=== PATIENT | female | born 1990 | race Caucasian/White ===

== ENCOUNTER → 2018-01-16 | Outpatient (CLI) | payer OTHER ==
[2018-01-16 08:57] LABS: Basophils # (A) 0.1 k/uL (0-0.2); Basophils % (A) 1 %; Eosinophils # (A) 0.2 k/uL (0-0.7); Eosinophils % (A) 4 %; HCT 39.2 % (34.0-46.0); HGB 13.5 gm/dL (11.4-16.0); Lymphocytes # (A) 1.4 k/uL (1.0-4.8); Lymphocytes % (A) 25 %; MCH 30.2 pg (25.0-35.0); MCHC 34.5 g/dL (31.0-37.0); MCV 87.5 fL (80.0-100.0); Mean Platelet Volume 8.8; Monocytes # (A) 0.3 k/uL (0-1.0); Monocytes % (A) 6 %; Neutrophils # (A) 3.4 k/uL (1.3-7.7); Neutrophils % (A) 62 %; Platelet Count 182 k/uL (150-450); RBC 4.48 m/uL (3.80-5.40); RDW 12.6 % (11.5-15.5); WBC 5.5 k/uL (3.8-10.6)
[2018-01-16 09:15] LABS: C Reactive Protein 6.9 mg/L (<10.0)
== END | disposition home or self-care (01) ==
LOC: LABWHC1 08:32
PROVIDERS: ATTEND Family Medicine
DX: Z00.00 Encounter for general adult medical examination without abnormal findings (principal); M25.561 Pain in right knee; M25.562 Pain in left knee
CPT/HCPCS: 36415; 80061; 82947; 85025; 86140; 86431

== ENCOUNTER 2018-07-01 03:05 | Emergency (ER) | payer OTHER ==
[2018-07-01 03:20] VITALS: TEMP 99.2
[2018-07-01] MEDS ORDERED: KETOROLAC 30 MG/ML 1 ML VIAL IVP STA (03:33)
--- NOTE | 2018-07-01 03:41 | ED ---
Abdominal Pain HPI - General Chief Complaint: Abdominal Pain Stated Complaint: Flank pain, unable to urinate,vomiting Time Seen by Provider: 07/01/18 03:32 Source: patient Mode of arrival: ambulatory - History of Present Illness Initial Comments: Karine is a 27-year-old female who works in the radiology department of our hospital, she has a history of kidney stones and comes to the ER today from her department for evaluation of flank pain with associated nausea and vomiting. Patient reports that approximately 90 minutes before checking her self to the ER she began to have stabbing left-sided flank pain with associated nausea and vomiting. Patient reports pain is 10 out of 10 and she was kneeling on the bathroom floor vomiting unable to get herself up. Patient was attempting to digitally coming to the ER because she currently doesn't have medical insurance and was concerned about the cost however the pain was unbearable and she was unable to work. She reports her last kidney stone was approximately 10 years ago. She recalls it being painful but doesn't recall pain this severe. Patient reports her last menstrual period was early in the month and there is no possibility of . She reports that prior to the sudden onset of this pain and nausea and vomiting she was in her usual state of health with no complaints. Last bowel movement occurred immediately after the onset of this pain, it was soft but not diarrhea. - Related Data Home Medications Medication Instructions Recorded Confirmed Norgestimate-Ethinyl Estradiol 1 each PO HS 07/25/17 07/01/18 [Tri-Sprintec Tablet] Ranitidine HCl [Zantac] 150 mg PO BID 07/25/17 07/01/18 Previous Rx's Medication Instructions Recorded Acetaminophen with Codeine 1 tab PO Q4H PRN 3 Days #10 tab 07/01/18 [Tylenol w/codeine #3] traMADol HCL [Ultram] 50 mg PO Q6HR PRN 3 Days #10 tab 07/01/18 Allergies Allergy/AdvReac Type Severity Reaction Status Date / Time Penicillins AdvReac Rash/Hives Verified 07/01/18 03:21 Sulfa (Sulfonamide AdvReac Rash/Hives Verified 07/01/18 03:21 Antibiotics) sulfamethoxazole AdvReac Rash/Hives Verified 07/01/18 03:21 [From Bactrim] trimethoprim [From Bactrim] AdvReac Rash/Hives Verified 07/01/18 03:21 Review of Systems ROS Statement: Those systems with pertinent positive or pertinent negative responses have been documented in the HPI. ROS Other: All systems not noted in ROS Statement are negative. Past Medical History Additional Past Medical History / Comment(s): Kidney stones History of Any Multi-Drug Resistant Organisms: None Reported Additional Past Surgical History / Comment(s): Lithotripsy Past Psychological History: No Psychological Hx Reported Smoking Status: Never smoker Past Alcohol Use History: None Reported Past Drug Use History: None Reported General Exam - General Exam Comments Initial Comments: Physical Exam GENERAL: Patient is well-developed and well-nourished. Patient is nontoxic and well-hydrated and is in moderate distress secondary to pain HENT: Normocephalic, Atraumatic. EYES: PERRL, EOMI PULMONARY: Unlabored respirations. No audible rales rhonchi or wheezing was noted. CARDIOVASCULAR: Tachycardic upon arrival, tachycardia resolved ABDOMEN: Soft and nontender with normal bowel sounds. Left-sided flank pain to palpation SKIN: Skin is clear with no lesions or rashes and otherwise unremarkable. : Deferred NEUROLOGIC: Patient is alert and oriented x3. Moving all extremities spontaneously MUSCULOSKELETAL: Normal extremities with adequate strength and full range of motion. No lower extremity swelling or edema. No calf tenderness. PSYCHIATRIC: Normal psychiatric evaluation. Limitations: no limitations Course Vital Signs 07/01/18 07/01/18 03:17 05:04 Temperature 99.2 F Pulse Rate 128 H 86 Respiratory 22 18 Rate Blood Pressure 113/81 110/64 O2 Sat by Pulse 99 100 Oximetry Medical Decision Making - Medical Decision Making Upon initial evaluation the patient is tachycardic, shaking in pain, crying absent imaging were ordered Toradol was ordered for pain Bedside ultrasound revealed no obvious hydronephrosis, ultrasound of the bladder did reveal a hyperdense in the left UVJ consistent with a stone, measuring 3-5 mm Patient was reevaluated after Toradol and IV fluids. Her pain is completely resolved she's resting comfortably Urinalysis reveals no evidence of urinary tract infection there is hematuria which is likely secondary to stone Patient was observed for over an hour after Toradol, she remained pain-free stated she felt well enough to return to work. The patient states only pain medication she has had in the past that works for her kidney stones was altered. A prescription was given. Return parameters were discussed all questions pertaining to care were answered best my ability patient was discharged home in stable condition. - Lab Data Result diagrams: 07/01/18 03:39 07/01/18 03:45 Lab Results 07/01/18 07/01/18 07/01/18 Range/Units 03:39 03:45 04:32 WBC 14.5 H (3.8-10.6) k/uL RBC 4.43 (3.80-5.40) m/uL Hgb 13.5 (11.4-16.0) gm/dL Hct 38.6 (34.0-46.0) % MCV 87.1 (80.0-100.0) fL MCH 30.5 (25.0-35.0) pg MCHC 35.0 (31.0-37.0) g/dL RDW 12.3 (11.5-15.5) % Plt Count 172 (150-450) k/uL Neutrophils % 86 % Lymphocytes % 7 % Monocytes % 4 % Eosinophils % 1 % Basophils % 0 % Neutrophils # 12.5 H (1.3-7.7) k/uL Lymphocytes # 1.1 (1.0-4.8) k/uL Monocytes # 0.7 (0-1.0) k/uL Eosinophils # 0.2 (0-0.7) k/uL Basophils # 0.1 (0-0.2) k/uL Sodium 138 (137-145) mmol/L Potassium 4.1 (3.5-5.1) mmol/L Chloride 104 (98-107) mmol/L Carbon Dioxide 23 (22-30) mmol/L Anion Gap 11 mmol/L BUN 9 (7-17) mg/dL Creatinine 0.80 (0.52-1.04) mg/dL Est GFR (CKD-EPI)AfAm >90 (>60 ml/min/1.73 sqM) Est GFR (CKD-EPI)NonAf >90 (>60 ml/min/1.73 sqM) Glucose 123 H (74-99) mg/dL Calcium 9.4 (8.4-10.2) mg/dL Total Bilirubin 0.4 (0.2-1.3) mg/dL AST 20 (14-36) U/L ALT 20 (9-52) U/L Alkaline Phosphatase 53 (38-126) U/L Total Protein 7.4 (6.3-8.2) g/dL Albumin 4.2 (3.5-5.0) g/dL Urine Color Urine Appearance (Clear) Urine pH (5.0-8.0) Ur Specific Lowgap (1.001-1.035) Urine Protein (Negative) Urine Glucose (UA) (Negative) Urine Ketones (Negative) Urine Blood (Negative) Urine Nitrite (Negative) Urine Bilirubin (Negative) Urine Urobilinogen (<2.0) mg/dL Ur Leukocyte Esterase (Negative) Urine RBC (0-5) /hpf Urine WBC (0-5) /hpf Ur Squamous Epith Cells (0-4) /hpf Urine Bacteria (None) /hpf Hyaline Casts (0-2) /lpf Urine Mucus (None) /hpf Urine HCG, Qual Not Detected (Not Detectd) 07/01/18 Range/Units 04:32 WBC (3.8-10.6) k/uL RBC (3.80-5.40) m/uL Hgb (11.4-16.0) gm/dL Hct (34.0-46.0) % MCV (80.0-100.0) fL MCH (25.0-35.0) pg MCHC (31.0-37.0) g/dL RDW (11.5-15.5) % Plt Count (150-450) k/uL Neutrophils % % Lymphocytes % % Monocytes % % Eosinophils % % Basophils % % Neutrophils # (1.3-7.7) k/uL Lymphocytes # (1.0-4.8) k/uL Monocytes # (0-1.0) k/uL Eosinophils # (0-0.7) k/uL Basophils # (0-0.2) k/uL Sodium (137-145) mmol/L Potassium (3.5-5.1) mmol/L Chloride (98-107) mmol/L Carbon Dioxide (22-30) mmol/L Anion Gap mmol/L BUN (7-17) mg/dL Creatinine (0.52-1.04) mg/dL Est GFR (CKD-EPI)AfAm (>60 ml/min/1.73 sqM) Est GFR (CKD-EPI)NonAf (>60 ml/min/1.73 sqM) Glucose (74-99) mg/dL Calcium (8.4-10.2) mg/dL Total Bilirubin (0.2-1.3) mg/dL AST (14-36) U/L ALT (9-52) U/L Alkaline Phosphatase (38-126) U/L Total Protein (6.3-8.2) g/dL Albumin (3.5-5.0) g/dL Urine Color Yellow Urine Appearance Cloudy H (Clear) Urine pH 5.5 (5.0-8.0) Ur Specific Lowgap 1.010 (1.001-1.035) Urine Protein 1+ H (Negative) Urine Glucose (UA) Negative (Negative) Urine Ketones 1+ H (Negative) Urine Blood Small H (Negative) Urine Nitrite Negative (Negative) Urine Bilirubin Negative (Negative) Urine Urobilinogen <2.0 (<2.0) mg/dL Ur Leukocyte Esterase Negative (Negative) Urine RBC 17 H (0-5) /hpf Urine WBC 10 H (0-5) /hpf Ur Squamous Epith Cells 10 H (0-4) /hpf Urine Bacteria Few H (None) /hpf Hyaline Casts 3 H (0-2) /lpf Urine Mucus Many H (None) /hpf Urine HCG, Qual (Not Detectd) Disposition Clinical Impression: Kidney stone Disposition: HOME SELF-CARE Condition: Good Prescriptions: Acetaminophen with Codeine [Tylenol w/codeine #3] 1 tab PO Q4H PRN 3 Days #10 tab PRN Reason: Pain traMADol HCL [Ultram] 50 mg PO Q6HR PRN 3 Days #10 tab PRN Reason: Pain Is patient prescribed a controlled substance at d/c from ED?: Yes When asked, does pt state using other controlled substances?: Yes If prescribed controlled substance>3 days was MAPS reviewed?: Yes Referrals: Jai Dacosta DO [Primary Care Provider] - 1-2 days
[2018-07-01] MEDS ORDERED: ONDANSETRON 4 MG/2 ML VIAL IVP STA (03:42)
[2018-07-01 03:53] LABS: Basophils # (A) 0.1 k/uL (0-0.2); Basophils % (A) 0 %; Eosinophils # (A) 0.2 k/uL (0-0.7); Eosinophils % (A) 1 %; HCT 38.6 % (34.0-46.0); HGB 13.5 gm/dL (11.4-16.0); Lymphocytes # (A) 1.1 k/uL (1.0-4.8); Lymphocytes % (A) 7 %; MCH 30.5 pg (25.0-35.0); MCV 87.1 fL (80.0-100.0); Mean Platelet Volume 8.9; Monocytes # (A) 0.7 k/uL (0-1.0); Monocytes % (A) 4 %; Neutrophils # (A) 12.5 k/uL (1.3-7.7); Neutrophils % (A) 86 %; Platelet Count 172 k/uL (150-450); RBC 4.43 m/uL (3.80-5.40); RDW 12.3 % (11.5-15.5); WBC 14.5 k/uL (3.8-10.6)
[2018-07-01 04:02] LABS: ALT 20 U/L (9-52); AST 20 U/L (14-36); Albumin 4.2 g/dL (3.5-5.0); Alkaline Phosphatase 53 U/L (38-126); Anion Gap 11 mmol/L; Blood Urea Nitrogen 9 mg/dL (7-17); Calcium 9.4 mg/dL (8.4-10.2); Carbon Dioxide 23 mmol/L (22-30); Chloride 104 mmol/L (98-107); Glucose 123 mg/dL (74-99); Potassium 4.1 mmol/L (3.5-5.1); Sodium 138 mmol/L (137-145); Total Bilirubin 0.4 mg/dL (0.2-1.3); Total Protein 7.4 g/dL (6.3-8.2)
[2018-07-01 05:05] VITALS: BP 110/64; PULSE 86; RESP 18
[2018-07-01 05:07] LABS: Appearance,Urine Cloudy (Clear); Bacteria,Urine Few /hpf; Bilirubin,Urine Negative (Negative); Blood,Urine Small (Negative); Color,Urine Yellow; Glucose,Urine (UA) Negative (Negative); Hyaline Casts,Urine 3 /lpf (0-2); Ketones,Urine 1+ (Negative); Leukocyte Esterase,Urine Negative (Negative); Mucus,Urine Many /hpf; Nitrite,Urine Negative (Negative); PH, Urine 5.5 (5.0-8.0); Protein,Urine 1+ (Negative); RBC,Urine 17 /hpf (0-5); Squamous Epithelial Cell,Urine 10 /hpf (0-4); Urobilinogen,Urine <2.0 mg/dL (<2.0); WBC,Urine 10 /hpf (0-5)
== END 2018-07-01 05:25 | disposition home or self-care (01) ==
LOC: EC 03:05
DX: N20.0 Calculus of kidney (principal); R00.0 Tachycardia, unspecified; Z88.0 Allergy status to penicillin; Z88.2 Allergy status to sulfonamides; Z79.3 Long term (current) use of hormonal contraceptives; Z79.899 Other long term (current) drug therapy; Z98.890 Other specified postprocedural states
CPT/HCPCS: 36415; 80053; 85025; 81001; 81025; 99284; 96374; 96375; J2405; J1885

== ENCOUNTER → 2019-01-08 | Outpatient (CLI) | payer MEDICAID ==
[2019-01-08 11:40] LABS: LDL Cholesterol,Calculated 106.8 mg/dL (0.0-131.0); VLDL Calculation 18.2 mg/dL (5.00-40.00)
== END | disposition home or self-care (01) ==
LOC: LABWHC1 07:04
PROVIDERS: ATTEND Family Medicine
DX: Z00.00 Encounter for general adult medical examination without abnormal findings (principal)
CPT/HCPCS: 36415; 80061; 82306; 82947

== ENCOUNTER → 2020-01-07 | Outpatient (CLI) | payer MEDICAID ==
[2020-01-07 12:47] LABS: HCT 40.3 % (34.0-46.0); HGB 13.2 gm/dL (11.4-16.0); MCH 29.7 pg (25.0-35.0); MCHC 32.8 g/dL (31.0-37.0); MCV 90.7 fL (80.0-100.0); Mean Platelet Volume 10.5; Platelet Count 176 k/uL (150-450); RBC 4.45 m/uL (3.80-5.40); RDW 12.9 % (11.5-15.5); WBC 4.9 k/uL (3.8-10.6)
[2020-01-07 22:26] LABS: Hemoglobin A1C 4.8 % (4.0-6.0)
[2020-01-08 05:49] LABS: Follicle Stimulating Hormone 8.5 mIU/mL; Luteinizing Hormone 19.5 mIU/mL; Prolactin 7.7 ng/mL (2.8-29.2)
== END | disposition home or self-care (01) ==
LOC: LABWHC1 11:34
PROVIDERS: ATTEND Obstetrics & Gynecology Obstetrics
DX: N91.2 Amenorrhea, unspecified (principal)
CPT/HCPCS: 36415; 83001; 83002; 83036; 84144; 84146; 84403; 84439; 84443; 85027

== ENCOUNTER → 2020-06-16 | Outpatient (CLI) | payer MEDICAID ==
[2020-06-16 20:24] LABS: Chol/HDL Ratio 2.44; LDL Cholesterol,Calculated 93.6 mg/dL (0.0-131.0); VLDL Calculation 11.4 mg/dL (5.00-40.00)
== END | disposition home or self-care (01) ==
LOC: LABWHC1 08:05
PROVIDERS: ATTEND Family Medicine
DX: Z00.00 Encounter for general adult medical examination without abnormal findings (principal)
CPT/HCPCS: 36415; 80061; 82947

== ENCOUNTER → 2020-09-27 | Outpatient (CLI) | payer MEDICAID ==
[2020-09-27 12:42] LABS: Follicle Stimulating Hormone 8.4 mIU/mL; Luteinizing Hormone 5.2 mIU/mL; Prolactin 19.2 ng/mL (2.8-29.2)
[2020-09-27 12:50] LABS: Progesterone 0.9 ng/mL
[2020-09-27 14:03] LABS: Hepatitis B Surface Antigen Non-Reactive (Non-Reactive); Hepatitis C IgG Antibody Non-Reactive (Non-Reactive)
[2020-09-27 15:17] LABS: HIV 2 AB Non-Reactive (Non-Reactive); HIV AB P24 Non-Reactive (Non-Reactive); HIV P24 AG Non-Reactive (Non-Reactive)
== END | disposition home or self-care (01) ==
LOC: LABWHC1 07:33
PROVIDERS: ATTEND Obstetrics & Gynecology Reproductive Endocrinology
DX: Z01.84 Encounter for antibody response examination (principal); Z01.83 Encounter for blood typing; E55.9 Vitamin D deficiency, unspecified; E28.9 Ovarian dysfunction, unspecified; N97.9 Female infertility, unspecified; Z11.59 Encounter for screening for other viral diseases; Z11.4 Encounter for screening for human immunodeficiency virus [HIV]; Z11.3 Encounter for screening for infections with a predominantly sexual mode of transmission; Z13.0 Encounter for screening for diseases of the blood and blood-forming organs and certain disorders involving the immune mechanism; Z13.29 Encounter for screening for other suspected endocrine disorder
CPT/HCPCS: 36415; 82306; 82397; 82670; 83001; 83002; 84144; 84146; 84403; 84443; 85307; 86762; 86780; 86787; 86803; 86850; 86900; 86901; 87340; 87390

== ENCOUNTER → 2020-10-18 | Outpatient (CLI) | payer MEDICAID | END | disposition home or self-care (01) | LOC: LABMAIN 06:38 | PROVIDERS: ATTEND Obstetrics & Gynecology Reproductive Endocrinology | DX: N97.9 Female infertility, unspecified (principal) | CPT/HCPCS: 36415; 84144 ==

== ENCOUNTER → 2020-10-26 | Outpatient (CLI) | payer MEDICAID | END | disposition home or self-care (01) | LOC: LABMAIN 00:57 | PROVIDERS: ATTEND Obstetrics & Gynecology Reproductive Endocrinology | DX: N97.9 Female infertility, unspecified (principal) | CPT/HCPCS: 36415; 84144 ==

== ENCOUNTER → 2020-11-11 | Outpatient (CLI) | payer MEDICAID ==
[2020-11-11 09:43] LABS: DHEA Sulfate 247.6 ug/dL (26.0-430.0)
[2020-11-11 10:20] LABS: ALT 20 U/L (8-44); AST 22 U/L (13-35); African American GFR (CKD) 113.9 (60.0-200.0); Albumin/Globulin Ratio 2.08 (1.60-3.17); Alkaline Phosphatase 56 U/L (41-126); Calcium 10.1 mg/dL (8.7-10.3); Carbon Dioxide 28.5 mmol/L (21.6-31.8); Chloride 102 mmol/L (96-109); Cholesterol 182 mg/dL (0-200); Globulin 2.5 g/dL (1.6-3.3); Glucose 100 mg/dL (70-110); Non-African American GFR(CKD) 98.2 (60.0-200.0); Potassium 4.4 mmol/L (3.5-5.5); Sodium 140 mmol/L (135-145); Total Bilirubin 0.8 mg/dL (0.3-1.2); Total Protein 7.7 g/dL (6.2-8.2); Triglycerides <50.0 mg/dL (0.0-149.0)
[2020-11-11 12:16] LABS: Insulin Level 8.1 mIU/mL (3.0-25.0)
== END | disposition home or self-care (01) ==
LOC: LABMAIN 04:40
PROVIDERS: ATTEND Internal Medicine Cardiovascular Disease
DX: E28.9 Ovarian dysfunction, unspecified (principal); Z13.1 Encounter for screening for diabetes mellitus; Z13.220 Encounter for screening for lipoid disorders
CPT/HCPCS: 36415; 80053; 80061; 82627; 83498; 83525

== ENCOUNTER → 2020-11-22 | Outpatient (CLI) | payer MEDICAID ==
[2020-11-22 18:13] LABS: Thyroid Peroxidase Antibodies <28.0 U/mL (0.0-60.0)
[2020-11-22 20:45] LABS: Hemoglobin A1C 4.9 % (4.0-6.0)
== END | disposition home or self-care (01) ==
LOC: LABMAIN 04:45
PROVIDERS: ATTEND Obstetrics & Gynecology Reproductive Endocrinology
DX: Z13.1 Encounter for screening for diabetes mellitus (principal); E55.9 Vitamin D deficiency, unspecified
CPT/HCPCS: 36415; 82306; 82947; 83036; 84443; 86376; 86800

== ENCOUNTER → 2020-11-25 | Outpatient (CLI) | payer MEDICAID | END | disposition home or self-care (01) | LOC: LABMAIN 04:22 | PROVIDERS: ATTEND Internal Medicine Cardiovascular Disease | DX: N97.9 Female infertility, unspecified (principal) | CPT/HCPCS: 36415; 84144 ==

== ENCOUNTER → 2021-01-18 | Outpatient (CLI) | payer MEDICAID | END | disposition home or self-care (01) | LOC: LABMAIN 00:54 | PROVIDERS: ATTEND Obstetrics & Gynecology Reproductive Endocrinology | DX: E03.9 Hypothyroidism, unspecified (principal); E55.9 Vitamin D deficiency, unspecified | CPT/HCPCS: 36415; 82306; 84443 ==

== ENCOUNTER → 2021-03-27 | Outpatient (CLI) | payer MEDICAID ==
[2021-03-27 20:59] LABS: HCG,Quantitative Serum 86.1 mIU/mL
== END | disposition home or self-care (01) ==
LOC: LABWHC1 13:54
PROVIDERS: ATTEND Obstetrics & Gynecology Reproductive Endocrinology
DX: Z32.00 Encounter for pregnancy test, result unknown (principal); N97.9 Female infertility, unspecified
CPT/HCPCS: 36415; 82672; 84144; 84443; 84702

== ENCOUNTER → 2021-03-29 | Outpatient (CLI) | payer MEDICAID | LOC: LABWHC1 12:59 | PROVIDERS: ATTEND Obstetrics & Gynecology Reproductive Endocrinology | DX: Z32.00 Encounter for pregnancy test, result unknown (principal) | CPT/HCPCS: 36415; 84702 ==

== ENCOUNTER → 2021-08-09 | Outpatient (CLI) | payer MEDICAID, OTHER | END | disposition home or self-care (01) | LOC: LABWHC1 07:48 | PROVIDERS: ATTEND Emergency Medicine | DX: U07.1 COVID-19 (principal) | CPT/HCPCS: 87635 ==

== ENCOUNTER 2021-08-10 06:33 | Emergency (ER) | payer MEDICAID, OTHER ==
[2021-08-10] MEDS: SODIUM CHLORIDE 0.9% 1,000 ML IV STA (07:12)
[2021-08-10 07:17] VITALS: RESP 18
--- NOTE | 2021-08-10 07:33 | ED ---
General Adult HPI - General Chief complaint: Upper Respiratory Infection Stated complaint: Covid Infusion Time Seen by Provider: 08/10/21 06:41 Source: patient, RN notes reviewed Mode of arrival: ambulatory Limitations: no limitations - History of Present Illness Initial comments: 30-year-old female presents to the emergency room for COVID-19 infusion. Patient states that 5 days ago she started to get symptoms of COVID-19. States she has had body aches and headaches. Patient is 24 weeks . Patient tested positive for COVID-19 yesterday. Patient would like antibody infusion. She did take Tylenol prior to arrival. She is not having any complaints such as vaginal bleeding or abdominal pain. Patient has no other complaints at this time including shortness of breath, chest pain, abdominal pain, nausea or vomiting, or visual changes. - Related Data Home Medications Medication Instructions Recorded Confirmed Norgestimate-Ethinyl Estradiol 1 each PO HS 07/25/17 07/01/18 [Tri-Sprintec Tablet] Ranitidine HCl [Zantac] 150 mg PO BID 07/25/17 07/01/18 Previous Rx's Medication Instructions Recorded Acetaminophen with Codeine 1 tab PO Q4H PRN 3 Days #10 tab 07/01/18 [Tylenol w/codeine #3] traMADol HCL [Ultram] 50 mg PO Q6HR PRN 3 Days #10 tab 07/01/18 Allergies Allergy/AdvReac Type Severity Reaction Status Date / Time Penicillins AdvReac Rash/Hives Verified 08/10/21 06:38 Sulfa (Sulfonamide AdvReac Rash/Hives Verified 08/10/21 06:38 Antibiotics) sulfamethoxazole AdvReac Rash/Hives Verified 08/10/21 06:38 [From Bactrim] trimethoprim [From Bactrim] AdvReac Rash/Hives Verified 08/10/21 06:38 Review of Systems ROS Statement: Those systems with pertinent positive or pertinent negative responses have been documented in the HPI. ROS Other: All systems not noted in ROS Statement are negative. Past Medical History Additional Past Medical History / Comment(s): Kidney stones History of Any Multi-Drug Resistant Organisms: None Reported Additional Past Surgical History / Comment(s): Lithotripsy, eye surgery Past Psychological History: No Psychological Hx Reported Past Alcohol Use History: None Reported Past Drug Use History: None Reported General Exam Limitations: no limitations General appearance: alert, in no apparent distress Head exam: Present: atraumatic Eye exam: Present: normal appearance, PERRL, EOMI. Absent: scleral icterus ENT exam: Present: normal exam, mucous membranes moist Neck exam: Present: normal inspection, full ROM Respiratory exam: Present: normal lung sounds bilaterally. Absent: respiratory distress, wheezes Cardiovascular Exam: Present: regular rate, normal rhythm, normal heart sounds GI/Abdominal exam: Present: other (gravid) Course Vital Signs 08/10/21 08/10/21 08/10/21 06:34 07:12 07:16 Temperature 99.1 F Pulse Rate 125 H 104 H Respiratory 24 18 18 Rate Blood Pressure 93/63 O2 Sat by Pulse 98 96 Oximetry Medical Decision Making - Medical Decision Making patient initially presents tachycardic however this did improve to 104. She was given fluids along with antibody infusion. Discussed return parameters and following up with INSIGHTS ANALYST. Disposition Clinical Impression: COVID Disposition: HOME SELF-CARE Condition: Good Instructions (If sedation given, give patient instructions): Coronavirus Disease 2019 (COVID-19) Additional Instructions: Please follow-up with your doctor in one to 2 days. Return to the emergency room for any worsening symptoms. Is patient prescribed a controlled substance at d/c from ED?: No Referrals: Jai Dacosta DO [Primary Care Provider] - 1-2 days Time of Disposition: 07:33
[2021-08-10] MEDS: BAMLANIVIMAB (EUA) 700 MG, ETESEVIMAB (EUA) 1,400 MG in SODIUM CHLORIDE 0.9% 100 ML IVPB ONE (07:43)
[2021-08-10] MEDS: SODIUM CHLORIDE 0.9% 50 ML IVPB ONE (08:46)
[2021-08-10 08:47] VITALS: BP 116/66; PULSE 96; TEMP 98
== END 2021-08-10 08:58 | disposition home or self-care (01) ==
LOC: EC 06:33
DX: O98.512 Other viral diseases complicating pregnancy, second trimester (principal); U07.1 COVID-19; Z88.0 Allergy status to penicillin; Z3A.24 24 weeks gestation of pregnancy; Z88.2 Allergy status to sulfonamides
CPT/HCPCS: 99283; J3490

== ENCOUNTER 2021-08-28 10:00 | Outpatient (CLI) | payer MEDICAID ==
[2021-08-28 11:42] VITALS: BP 107/67; PULSE 85; RESP 14; TEMP 97.8
--- NOTE | 2021-09-04 17:16 | P.MSEPDOC ---
Presenting Problems - Arrival Data Date of Arrival on Unit: 08/28/21 Time of Arrival on Unit: 10:30 Mode of Transport: Ambulatory - Complaint OB-Reason for Admission/Chief Complaint: Decreased Movement Medical History - Information : 2 Para: 0 Term: 0 : 0 Abortions: Spontaneous or Elective: 0 Number of Living Children: 0 - Gestational Age Gestational Age by LAYNE (wks/days): 25 Weeks and 6 Days Review of Systems - Review of Systems Constitutional: No problems Breast: No problems ENT: No problems Cardiovascular: No problems Respiratory: No problems Gastrointestinal: No problems Genitourinary: No problems Musculoskeletal: No problems Neurological: No problems Skin: No problems Vital Signs - Temperature Temperature: 97.8 F Temperature Source: Temporal Artery Scan - Pulse Right Brachial Pulse Rate: 85 Pulse Assessment Method: Automatic Cuff - Respirations Respiratory Rate: 14 Oxygen Delivery Method: Room Air - Blood Pressure Right Arm Blood Pressure: 107/67 Blood Pressure Mean: 80 Blood Pressure Source: Automatic Cuff Medical Screen Scoring - Assessment - Baby A Baseline FHR: 145 Heart Rate - NICHD Category: Category I (Normal) Physician Notification - Physician Notified Physician Notified Date: 08/28/21 Physician Notified Time: 11:03 Physician: Mark Carballo - Notification Comment Comment: pt discharged home after reported to Maternal Triage Index - Maternal Triage Index Presenting for scheduled procedure w/no complaint: No - Stat/Priority 1 Stat Priority 1: Yes Provider Notified: Mark Carballo Provider Notified Time: 11:03 Criteria Met for Priority 1: reported pt visit for dfm before getting to triage and active fm now. reported spotting after intercourse over the weekend since resolved Disposition - Disposition OB Disposition: Discharge to home Discharge Date: 08/28/21 Discharge Time: 11:09 I agree with the RN Medical Screening Exam: Yes Physician's MSE Comment: I have neither seen nor examined the patient. Case reviewed; plan agreed upon as documented in EMR&OBIX.: Yes Diagnosis: RELATED CONDITIONS, UNSPECIFIED, SECOND TRIMESTER
== END 2021-08-28 11:09 | disposition home or self-care (01) ==
LOC: FBPOP 10:00
PROVIDERS: ATTEND Obstetrics & Gynecology
DX: O26.92 Pregnancy related conditions, unspecified, second trimester (principal); Z3A.25 25 weeks gestation of pregnancy
CPT/HCPCS: 99213

== ENCOUNTER 2021-12-05 16:59 | Inpatient (IN) | payer MEDICAID ==
[2021-12-11] MEDS ORDERED: METHYLERGONOVINE 0.2 MG/ML 1 ML AMP IM PRN (06:40)
[2021-12-11] MEDS ORDERED: LIDOCAINE 1% (PF) 10 MG/ML (30 ML SDV) SQ PRN (06:40)
[2021-12-11] MEDS ORDERED: OXYTOCIN 10 UNIT/ML 1 ML VIAL IM PRN (06:40)
[2021-12-11] MEDS ORDERED: CARBOPROST TROMETHAMINE 250 MCG/ML 1 ML AMP IM PRN (06:40)
[2021-12-11] MEDS ORDERED: TERBUTALINE 1 MG/ML VIAL SQ PRN (06:40)
[2021-12-11] MEDS ORDERED: OXYTOCIN 30 UNITS/500 ML NS 30 UNIT in SALINE 1 500ML.BAG IV SCH ×2 (06:45→19:59)
[2021-12-11 06:55] LABS: Basophils # (A) 0.1 k/uL (0-0.2); Basophils % (A) 1 %; Eosinophils # (A) 0.2 k/uL (0-0.7); Eosinophils % (A) 2 %; HCT 34.7 % (34.0-46.0); HGB 11.3 gm/dL (11.4-16.0); Lymphocytes # (A) 2.7 k/uL (1.0-4.8); Lymphocytes % (A) 28 %; MCH 28.9 pg (25.0-35.0); MCHC 32.5 g/dL (31.0-37.0); MCV 88.9 fL (80.0-100.0); Mean Platelet Volume 13.8; Monocytes # (A) 0.6 k/uL (0-1.0); Monocytes % (A) 6 %; Neutrophils # (A) 5.7 k/uL (1.3-7.7); Neutrophils % (A) 60 %; Platelet Count 160 k/uL (150-450); RBC 3.91 m/uL (3.80-5.40); RDW 13.6 % (11.5-15.5); WBC 9.4 k/uL (3.8-10.6)
[2021-12-11] MEDS ORDERED: diphenhydrAMINE 50 MG/ML 1 ML VIAL IVP PRN ×3 (07:49→19:59)
[2021-12-11] MEDS: LACTATED RINGERS 1,000 ML IV SCH ×4 (13:12→20:06)
[2021-12-11] MEDS: ONDANSETRON 4 MG/2 ML VIAL IVP PRN (14:51)
[2021-12-11] MEDS ORDERED: ROPIVACAINE 100 MG, fentaNYL (PF). 200 MCG in SODIUM CHLORIDE 0.9% 76 ML EPIDURAL ONE (17:46)
[2021-12-11] MEDS ORDERED: CITRIC ACID-SODIUM CITRATE 15 ML CUP PO ONE (18:24)
--- NOTE | 2021-12-11 19:44 | P.OP ---
Date of Procedure: 12/11/21 Preoperative Diagnosis: IUP at 40 and 6/7 weeks, nonreassuring heart tones remote from delivery Postoperative Diagnosis: Same Procedure(s) Performed: Primary low transverse section Anesthesia: epidural Surgeon: Diana Robins Friction Welding Machine Operator #1: Ammon Rojo Estimated Blood Loss (ml): 750 IV fluids (ml): 1,000 Urine output (ml): 200 Pathology: other (Placenta) Condition: stable Disposition: observation Indications for Procedure: 31-year-old 3 para 0020 at 40-6/7 weeks presents to labor and delivery for induction of labor secondary to postdates. Patient was admitted to labor and delivery where Pitocin induction of labor was begun. Patient underwent amniotomy and clear fluid was obtained. Patient progressed through labor eventually becoming uncomfortable and requested epidural placement. Epidural was placed without difficulty. Patient was noted to have a few lates after epidural placement. Patient subsequently did well where late decelerations were noted once again, Pitocin was turned off and category 1 heart tones were appreciated afterwards. Discussion with patient regarding nonreassuring heart tones, and need for primary secondary to intolerance to labor. Questions are answered patient states understanding and informed consent is obtained. Anesthesia will be notified. We'll proceed with primary Operative Findings: Normal uterus tubes and ovaries were appreciated, viable female infant delivered at 1910, weight of 7 lbs. 11 oz., Apgars of 8 and 9 at one and 5 minutes respectively. Description of Procedure: Patient was taken back to the operating suite where epidural anesthesia was found be adequate. Patient was prepped and draped in the normal sterile fashion in the dorsal supine position. A Pfannenstiel skin incision made with a scalpel and carried through to underlying layer fascia. Fascia was incised in the midline and the incision was extended laterally. The superior aspect of the fascial incision was then grasped manfred clamps, elevated and underlying rectus muscle was dissected off sharply. The inferior aspect of the fascial incision was then grasped with Manfred clamps, elevated and underlying rectus muscles dissected off sharply. The rectus muscles were in the midline the peritoneum was identified and entered. The bladder blade was then inserted into the pelvis. A vesicouterine peritoneum was identified and the bladder flap was created using sharp and blunt dissection. A hysterotomy incision was made with the scalpel and the was encountered in a vertex presentation and delivered in the usual fashion. Clear fluid was noted. The umbilical cord was doubly clamped and cut and the infant was handed to awaiting RN. Spontaneous cry was noted at . The placenta was then delivered manually and the uterus was cleared of all clots and debris. The uterus was delivered from the abdomen and hysterotomy incision was closed with 0 Vicryl in a running locked fashion. A second imbricating suture was performed. Hemostasis was appreciated. The pelvis was then closely irrigated the hysterotomy incision was inspected once again and found be hemostatic. The uterus was returned to the abdomen, the gutters were cleared of all clots and debris. The peritoneum was loosely reapproximated. The rectus muscles were inspected and found to be hemostatic. The fascia was then closed with 0 Vicryl in a running fashion from one lateral edge to the other. The subcutaneous tissue the skin was then closed with 4-0 Vicryl in a subcuticular fashion. Steri-Strips and sterile dressings were applied. All counts were noted to be correct 2. Patient and tolerated delivery well and are resting comfortably. The subcutaneous tissue was irrigated and any spots of bleeding were made hemostatic with the Bovie. The subcutaneous tissue was then closed with 3-0 Vicryl in a running fashion. The skin was closed with 4-0 Vicryl in a subcuticular fashion. Steri-Strips and sterile dressings were applied. All counts were noted be correct 2 at the end of the procedure. Patient and tolerated delivery well and are resting comfortably.
--- NOTE | 2021-12-11 19:45 | P.HPOB ---
History of Present Illness H&P Date: 12/11/21 Chief Complaint: IUP @ 40 6/7 weeks, postdates This is a 31-year-old 3 para 0020 at 40-6/7 weeks that presents to labor and delivery for induction of labor secondary to postdates. Patient has been receiving routine care which has been essentially uncomplicated. Patient notes good movement denies contractions vaginal bleeding or loss of fluid. Patient does have a history of hypothyroidism for which she takes Synthroid, she did struggle with infertility in addition secondary to PCOS. Patient's blood type is O+, rubella status immune, B surface engine negative, HIV negative, RPR nonreactive, group beta strep culture is noted be positive. Review of Systems Constitutional: Denies chills, Denies fatigue, Denies fever Ears, nose, mouth and throat: Denies headache Cardiovascular: Reports leg edema Respiratory: Denies dyspnea Gastrointestinal: Denies constipation, Denies diarrhea, Denies nausea, Denies vomiting Genitourinary: Reports Past Medical History Additional Past Medical History / Comment(s): Kidney stones, narrow angle glaucoma History of Any Multi-Drug Resistant Organisms: None Reported Additional Past Surgical History / Comment(s): Lithotripsy, eye surgery Past Anesthesia/Blood Transfusion Reactions: Postoperative Nausea & Vomiting (PONV) Past Psychological History: No Psychological Hx Reported Smoking Status: Never smoker Past Alcohol Use History: None Reported Past Drug Use History: None Reported - Past Family History Mother History Unknown: Yes Family Medical History: No Reported History Medications and Allergies Home Medications Medication Instructions Recorded Confirmed Type Aspirin 81 mg PO DAILY 08/28/21 12/11/21 History Pnv,Calcium 72/Iron/Folic Acid 1 tab PO DAILY 08/28/21 12/11/21 History [ Plus Tablet] metFORMIN HCL 1 tab PO DAILY 08/28/21 12/11/21 History Levothyroxine Sodium [Synthroid] 50 mcg PO DAILY 12/11/21 12/11/21 History Allergies Allergy/AdvReac Type Severity Reaction Status Date / Time Penicillins AdvReac Rash/Hives Verified 12/11/21 06:36 Sulfa (Sulfonamide AdvReac Rash/Hives Verified 12/11/21 06:36 Antibiotics) sulfamethoxazole AdvReac Rash/Hives Verified 12/11/21 06:36 [From Bactrim] trimethoprim [From Bactrim] AdvReac Rash/Hives Verified 12/11/21 06:36 Exam Osteopathic Statement: *. No significant issues noted on an osteopathic structural exam other than those noted in the History and Physical/Consult. 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 heart tones noted be category 1 and she is ramon every 5 minutes, Pitocin is at 6. Results Result Diagrams: 12/11/21 06:30 Abnormal Lab Results - Last 24 Hours (Table) 12/11/21 Range/Units 06:30 Hgb 11.3 L (11.4-16.0) gm/dL Assessment and Plan (1) Post-dates Current Visit: Yes Status: Acute Code(s): O48.0 - POST-TERM SNOMED Code(s): 50641555 (2) GBS (group B Streptococcus carrier), +RV culture, currently Current Visit: Yes Status: Acute Code(s): O99.820 - STREPTOCOCCUS B CARRIER STATE COMPLICATING SNOMED Code(s): 5679341506967 Plan: 31-year-old at 40-6/7 weeks that presents to labor and delivery for induction of labor secondary to postdates. Patient is admitted to labor and delivery and Pitocin induction of labor is begun per hospital protocol. Patient is counseled on options for analgesia during labor, Stadol and epidural are discussed. Patient states understanding and she will consider. Continue current plan.
[2021-12-11] MEDS ORDERED: ZOLPIDEM 5 MG TAB PO PRN (19:59)
[2021-12-11] MEDS ORDERED: diphenhydrAMINE 25 MG CAP PO PRN (19:59)
[2021-12-11] MEDS ORDERED: ONDANSETRON 4 MG/2 ML VIAL IVP PRN (19:59)
[2021-12-11] MEDS ORDERED: METOCLOPRAMIDE 5 MG/ML 2 ML VIAL IVP PRN (19:59)
[2021-12-11] MEDS ORDERED: diphenhydrAMINE 50 MG CAP PO PRN (19:59)
[2021-12-11] MEDS ORDERED: SIMETHICONE 80 MG CHEWABLE PO PRN (19:59)
[2021-12-11] MEDS ORDERED: NALOXONE 0.4 MG/ML 1 ML VIAL IV PRN (19:59)
[2021-12-11] MEDS: SENNOSIDES-DOCUSATE SODIUM 1 EACH TAB PO SCH (20:06)
[2021-12-11] MEDS: ACETAMINOPHEN IV (For NPO) 1,000 MG in EMPTY BAG 1 BAG IVPB SCH (20:16)
[2021-12-11] MEDS: ACETAMINOPHEN TAB 500 MG TAB PO SCH (22:12)
[2021-12-11] MEDS: traMADol 50 MG TAB PO SCH (22:13)
[2021-12-12] MEDS: IBUPROFEN 600 MG TAB PO SCH ×5 (01:21→23:26)
[2021-12-12] MEDS: IBUPROFEN IV 800 MG in SODIUM CHLORIDE 0.9% 250 ML IV SCH ×3 (02:10→21:04)
[2021-12-12] MEDS: LACTATED RINGERS 1,000 ML IV SCH ×3 (02:11→04:16)
[2021-12-12] MEDS: ONDANSETRON 4 MG/2 ML VIAL IVP PRN (03:59)
[2021-12-12] MEDS: ACETAMINOPHEN TAB 500 MG TAB PO SCH ×4 (04:17→22:51)
[2021-12-12] MEDS: ACETAMINOPHEN IV (For NPO) 1,000 MG in EMPTY BAG 1 BAG IVPB SCH (05:39)
[2021-12-12] MEDS: LEVOTHYROXINE 50 MCG TAB PO SCH (06:16)
--- NOTE | 2021-12-12 07:37 | P.PN ---
Progress Note - Text Progress Note Date: 12/12/21 Postop day 1 from under spinal anesthesia with intrathecal morphine given for postop pain management. Patient is doing well. Pain is well controlled. On visual analog scale 1/10 No itching present No nausea or vomiting reported. No Headache or weakness and numbness in the legs. No complications from spinal anesthesia.
[2021-12-12 07:52] LABS: Basophils % (A) 0 %; Eosinophils % (A) 0 %; HCT 33.2 % (34.0-46.0); HGB 10.7 gm/dL (11.4-16.0); Lymphocytes # (A) 1.5 k/uL (1.0-4.8); Lymphocytes % (A) 12 %; MCH 29.2 pg (25.0-35.0); MCHC 32.2 g/dL (31.0-37.0); MCV 90.7 fL (80.0-100.0); Mean Platelet Volume 14.4; Monocytes # (A) 0.5 k/uL (0-1.0); Monocytes % (A) 4 %; Neutrophils # (A) 10.6 k/uL (1.3-7.7); Neutrophils % (A) 82 %; Platelet Count 150 k/uL (150-450); RBC 3.66 m/uL (3.80-5.40); RDW 14.2 % (11.5-15.5); WBC 12.9 k/uL (3.8-10.6)
[2021-12-12] MEDS: traMADol 50 MG TAB PO SCH ×4 (08:09→22:51)
[2021-12-12] MEDS: SENNOSIDES-DOCUSATE SODIUM 1 EACH TAB PO SCH ×2 (08:09→20:29)
[2021-12-12] MEDS: PRENATAL VIT-IRON-FOLIC ACID 1 EACH CAP PO SCH (08:09)
[2021-12-12 08:24] LABS: Large Platelets Present; RBC Morphology Normal
--- NOTE | 2021-12-12 08:40 | P.PNOBGPC ---
Subjective - Subjective Principal diagnosis: POD 1 LTCS Interval history: Patient did well overnight. She is ambulating without difficulty, awaiting spontaneous void. She did note significant pelvic pain, bladder was then drained via straight cath for 900 mL of clear yellow urine. Patient is tolerating a regular diet without nausea or vomiting. She states her pain is controlled. Patient reports: Reports pain well controlled, Reports ambulating normally, Denies voiding normally : doing well, nursing well Objective - Vital Signs Latest vital signs: Vital Signs Temp Pulse Resp BP Pulse Ox 12/12/21 04:00 97.7 F 77 16 115/73 98 12/11/21 23:42 97.8 F 73 16 115/77 97 12/11/21 21:42 97.0 F L 68 16 116/70 98 12/11/21 21:12 97.0 F L 69 16 111/68 98 12/11/21 20:42 97.0 F L 65 16 125/68 99 12/11/21 20:27 97.6 F 85 20 119/57 99 12/11/21 20:12 97.4 F L 65 16 113/76 97 12/11/21 19:57 72 16 113/74 96 12/11/21 19:42 96.6 F L 93 16 119/71 99 Intake and Output 12/11/21 12/12/21 12/12/21 22:59 06:59 14:59 Output Total 1220 730 Balance -1220 -730 Output: Urine 400 730 Output, Quantitative 820 Blood Loss Other: # Voids 0 - Exam Extremities: Present: normal, edema Abdomen: Present: normal appearance Incision: Present: normal, dry, intact - Labs Labs: Abnormal Lab Results - Last 24 Hours (Table) 12/12/21 Range/Units 07:05 WBC 12.9 H (3.8-10.6) k/uL RBC 3.66 L (3.80-5.40) m/uL Hgb 10.7 L (11.4-16.0) gm/dL Hct 33.2 L (34.0-46.0) % Neutrophils # 10.6 H (1.3-7.7) k/uL Assessment and Plan (1) Post-dates Current Visit: Yes Status: Acute Code(s): O48.0 - POST-TERM SNOMED Code(s): 80729160 (2) GBS (group B Streptococcus carrier), +RV culture, currently Current Visit: Yes Status: Acute Code(s): O99.820 - STREPTOCOCCUS B CARRIER STATE COMPLICATING SNOMED Code(s): 8000605690938 (3) S/P section Current Visit: Yes Status: Acute Code(s): Z98.891 - HISTORY OF UTERINE SCAR FROM PREVIOUS SURGERY SNOMED Code(s): 786329352 Plan: 31-year-old status post low transverse section for nonreassuring heart tones. Patient did well overnight. Awaiting spontaneous void. Encourage increased ambulation today. Anticipate discharge home tomorrow
[2021-12-12] MEDS: metFORMIN 500 MG TAB PO SCH (11:24)
[2021-12-13] MEDS: traMADol 50 MG TAB PO SCH ×3 (02:36→14:43)
[2021-12-13] MEDS: IBUPROFEN 600 MG TAB PO SCH ×2 (05:40→11:31)
[2021-12-13] MEDS: ACETAMINOPHEN TAB 500 MG TAB PO SCH ×2 (05:40→11:26)
[2021-12-13] MEDS: LEVOTHYROXINE 50 MCG TAB PO SCH (06:45)
[2021-12-13] MEDS: SENNOSIDES-DOCUSATE SODIUM 1 EACH TAB PO SCH (08:26)
[2021-12-13] MEDS: PRENATAL VIT-IRON-FOLIC ACID 1 EACH CAP PO SCH (08:27)
--- NOTE | 2021-12-13 08:57 | P.DS ---
Providers Date of admission: 12/11/21 06:09 Expected date of discharge: 12/13/21 Attending physician: Diana Robins Primary care physician: Jai Dacosta - Discharge Diagnosis(es) (1) Post-dates Current Visit: Yes Status: Acute (2) GBS (group B Streptococcus carrier), +RV culture, currently Current Visit: Yes Status: Acute (3) S/P section Current Visit: Yes Status: Acute Hospital Course: This is a 31-year-old 3 para 10-1 that presented to labor and delivery at 40-6/7 weeks for induction of labor secondary to postdates. Patient was admitted to labor and delivery and Pitocin induction of labor was begun. Patient did receive an epidural during the labor process. Patient was noted to have heart tones with late decelerations, recurrent. Pitocin was turned off. Patient then returned category 1 heart tones. Once Pitocin was turned back on 4 labor induction recurrent late discontinued. Patient was counseled on need for section secondary to nonreassuring heart tones, intolerance of labor. Multiple questions were answered and patient stated understanding of the plan for secondary to intolerance of labor. was performed without difficulty. For full details on the please see the operative report. Patient delivered a liveborn female infant at 1910 on 12/11, weight of 7 lbs. 11 oz. Patient has done relatively well postoperatively. Patient did have some difficulty with urinary retention and Damon catheter was replaced after Stroop to straight cathed postop day 1 revealed 900 mL of urine. Damon catheter is removed on postop day 2 and we are awaiting a spontaneous void. Patient is feeling well and it spontaneous void And she would like discharge home on postop day 2. Patient states her lochia is minimal. She states her breast-feeding is going well. She denies concerns and states her pain is well-controlled. Patient Condition at Discharge: Good Plan - Discharge Summary New Discharge Prescriptions: No Action metFORMIN HCL 1 tab PO DAILY Pnv,Calcium 72/Iron/Folic Acid [ Plus Tablet] 1 tab PO DAILY Aspirin 81 mg PO DAILY Levothyroxine Sodium [Synthroid] 50 mcg PO DAILY Discharge Medication List Aspirin 81 mg PO DAILY 08/28/21 [History] Pnv,Calcium 72/Iron/Folic Acid [ Plus Tablet] 1 tab PO DAILY 08/28/21 [History] metFORMIN HCL 1 tab PO DAILY 08/28/21 [History] Levothyroxine Sodium [Synthroid] 50 mcg PO DAILY 12/11/21 [History] Follow up Appointment(s)/Referral(s): Diana Robins DO [Doctor of Osteopathic Medicine] - 2 Weeks Patient Instructions/Handouts: (DC), (GEN) Activity/Diet/Wound Care/Special Instructions: Patient is to follow-up in 2 weeks for routine postoperative check. Steri- Strip's her to stay on for 7-10 days should they become itchy or have an odor she can remove them prior to this. Lochia can be menstrual-like bleeding for up to 6 weeks. Patient is counseled on this. Should the patient have any concerns prior to her routine postoperative appointment she is urged to call the office. Discharge Disposition: HOME SELF-CARE
[2021-12-13 09:24] VITALS: BP 118/80; PULSE 64; RESP 18; TEMP 97.9
[2021-12-13] MEDS: metFORMIN 500 MG TAB PO SCH (09:28)
== END 2021-12-13 15:35 | disposition home or self-care (01) | DRG 788 ==
LOC: 4FBP 12-11 06:09
PROVIDERS: ADMIT Obstetrics & Gynecology Obstetrics; ATTEND Obstetrics & Gynecology Obstetrics
PROC: 10D00Z1 Extraction of Products of Conception, Low, Open Approach (ICD-10-PCS; principal; 2021-12-11 18:49)
DX: O48.0 Post-term pregnancy (principal); E03.9 Hypothyroidism, unspecified; H40.20X0 Unspecified primary angle-closure glaucoma, stage unspecified; O76 Abnormality in fetal heart rate and rhythm complicating labor and delivery; O99.284 Endocrine, nutritional and metabolic diseases complicating childbirth; O99.824 Streptococcus B carrier state complicating childbirth; Z37.0 Single live birth; Z3A.40 40 weeks gestation of pregnancy; Z79.82 Long term (current) use of aspirin; Z79.890 Hormone replacement therapy; Z87.442 Personal history of urinary calculi
CPT/HCPCS: 85025; 86850; 86900; 86901

== ENCOUNTER → 2022-01-23 | Outpatient (CLI) | payer MEDICAID ==
[2022-01-24 00:08] LABS: T4, Free (Free Thyroxine) 1.27 ng/dL (0.800-1.800)
== END | disposition home or self-care (01) ==
LOC: LABWHC1 16:03
PROVIDERS: ATTEND Obstetrics & Gynecology Obstetrics
DX: E03.9 Hypothyroidism, unspecified (principal)
CPT/HCPCS: 36415; 84439; 84443

== ENCOUNTER → 2022-06-27 | Outpatient (CLI) | payer MEDICAID ==
[2022-06-27 11:36] LABS: Chol/HDL Ratio 2.57 Ratio; LDL Cholesterol,Calculated 103.1 mg/dL (0.0-131.0); VLDL Calculation 7.48 mg/dL (5.00-40.00)
== END | disposition home or self-care (01) ==
LOC: LABMAIN 03:12
PROVIDERS: ATTEND Family Medicine
DX: Z00.00 Encounter for general adult medical examination without abnormal findings (principal)
CPT/HCPCS: 80061; 83036

== ENCOUNTER → 2023-09-17 | Outpatient (CLI) | payer BC ==
--- NOTE | 2023-09-17 12:27 | USB ---
Technique: Method: Targeted. Doppler: Color. Patient Position: Supine. Prior Study Comparison: No prior studies available for comparison. Findings: The area of palpable concern of the left breast, the axilla of the left breast and the retroareolar of the left breast were scanned. Smoothly marginated ovoid mass at the left retroareolar region at 4:00 measuring 8 mm could reflect fibroadenoma. Six-month follow-up ultrasound is advised as well as clinical correlation.. Overall Assessment: Probably benign, BI-RAD 3 Management: Diagnostic Breast Ultrasound of the left breast. A clinical breast exam by your physician is recommended on an annual basis and results should be correlated with mammographic findings. This exam should not preclude additional follow-up of suspicious palpable abnormalities. Results were given to the patient verbally at the time of exam. Electronically signed and approved by: Ramy Nichols M.D. Radiologis
== END | disposition home or self-care (01) ==
LOC: RADUSWWP 10:59
PROVIDERS: ATTEND Obstetrics & Gynecology Obstetrics
DX: N64.4 Mastodynia (principal)

== ENCOUNTER 2024-01-24 18:02 | Outpatient (CLI) | payer BC ==
[2024-01-24 19:57] VITALS: BP 120/67; PULSE 101; RESP 18; TEMP 97.7
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
== END 2024-01-24 19:45 | disposition home or self-care (01) ==
LOC: FBPOP 18:02
PROVIDERS: ATTEND Obstetrics & Gynecology
DX: O9A.213 Injury, poisoning and certain other consequences of external causes complicating pregnancy, third trimester (principal); S39.91XA Unspecified injury of abdomen, initial encounter; Z88.0 Allergy status to penicillin; Z88.2 Allergy status to sulfonamides; Z88.1 Allergy status to other antibiotic agents; Z3A.37 37 weeks gestation of pregnancy; W18.30XA Fall on same level, unspecified, initial encounter
CPT/HCPCS: 59025; 99213

== ENCOUNTER 2024-01-27 10:07 | Inpatient (IN) | payer BC ==
[2024-01-27] MEDS ORDERED: METHYLERGONOVINE 0.2 MG/ML 1 ML AMP IM PRN (10:23)
[2024-01-27] MEDS ORDERED: CARBOPROST TROMETHAMINE 250 MCG/ML 1 ML AMP IM PRN (10:23)
[2024-01-27] MEDS ORDERED: TRANEXAMIC 1,000 MG/100ML-NACL 1,000 MG in EMPTY BAG 1 BAG IV PRN (10:23)
[2024-01-27] MEDS ORDERED: miSOPROStoL 200 MCG TAB PO PRN (10:23)
[2024-01-27] MEDS ORDERED: OXYTOCIN 10 UNIT/ML 1 ML VIAL IM PRN (10:23)
[2024-01-27] MEDS: LACTATED RINGERS 1,000 ML IV SCH ×2 (10:26→19:50)
[2024-01-27] MEDS ORDERED: OXYTOCIN 30 UNITS/500 ML NS 30 UNIT in SALINE 1 500ML.BAG IV SCH (10:30)
[2024-01-27 10:52] LABS: Basophils % (A) 0 %; Eosinophils # (A) 0.2 k/uL (0-0.7); Eosinophils % (A) 2 %; HGB 12.2 gm/dL (11.4-16.0); Lymphocytes # (A) 1.9 k/uL (1.0-4.8); Lymphocytes % (A) 19 %; MCH 31.2 pg (25.0-35.0); MCHC 33.9 g/dL (31.0-37.0); MCV 91.9 fL (80.0-100.0); Mean Platelet Volume 12.3; Monocytes # (A) 0.6 k/uL (0-1.0); Monocytes % (A) 6 %; Neutrophils # (A) 6.7 k/uL (1.3-7.7); Neutrophils % (A) 70 %; Platelet Count 153 k/uL (150-450); RBC 3.92 m/uL (3.80-5.40); RDW 13.1 % (11.5-15.5); WBC 9.6 k/uL (3.8-10.6)
[2024-01-27] MEDS: CITRIC ACID-SODIUM CITRATE 15 ML CUP PO ONE (11:43)
[2024-01-27] MEDS: LACTATED RINGERS 1,000 ML IV ONE (11:43)
[2024-01-27] MEDS ORDERED: OXYTOCIN 30 UNITS/500 ML NS BAG IV ONE (12:12)
[2024-01-27] MEDS ORDERED: PHENYLEPHRINE-0.9% NACL SYG 1,000 MCG/10 ML SYRINGE ONE (12:12)
[2024-01-27] MEDS ORDERED: MORPHINE SULFATE (PF) 0.3 MG/0.3 ML SYR ONE (12:12)
[2024-01-27] MEDS ORDERED: ONDANSETRON 4 MG/2 ML VIAL ONE (12:12)
[2024-01-27] MEDS ORDERED: KETOROLAC 15 MG/ML 1 ML VIAL IVP PRN (12:45)
[2024-01-27] MEDS ORDERED: ONDANSETRON 4 MG/2 ML VIAL IVP PRN ×2 (12:45→13:13)
[2024-01-27] MEDS ORDERED: NALOXONE 0.4 MG/ML 1 ML VIAL IV PRN ×2 (12:45→13:13)
[2024-01-27] MEDS ORDERED: diphenhydrAMINE 50 MG/ML 1 ML VIAL IVP PRN ×2 (12:45→13:13)
--- NOTE | 2024-01-27 13:09 | P.HPOB ---
History of Present Illness H&P Date: 01/27/24 Chief Complaint: IUP at 39 0/7 weeks, history of x 1 desires repeat This is a 33-year-old 4 para 1-0-2-1 at 39-0/7 weeks that presents to labor and delivery for scheduled repeat section. Patient has noted decreased movement over the last week with reassuring testing. Patient has a history of hypothyroidism and has been euthyroid off meds this is being followed by her primary care. Group beta strep cultures were noted to be positive during care. Patient denies contractions vaginal bleeding or loss of fluid. She does note movement today. On blood work this patient has a blood type of O+, rubella status immu ne, RPR is nonreactive, hepatitis B surface engine is negative, HIV is negative group beta strep culture is positive as stated above. She did pass her 1 hour GDS. Review of Systems Constitutional: Denies chills, Denies fatigue, Denies fever Ears, nose, mouth and throat: Denies headache Cardiovascular: Reports leg edema Respiratory: Denies dyspnea Gastrointestinal: Denies constipation, Denies diarrhea, Denies nausea, Denies vomiting Genitourinary: Reports Past Medical History Additional Past Medical History / Comment(s): Kidney stones, narrow angle glaucoma History of Any Multi-Drug Resistant Organisms: None Reported Past Surgical History: Section Additional Past Surgical History / Comment(s): Lithotripsy, eye surgery Past Anesthesia/Blood Transfusion Reactions: Postoperative Nausea & Vomiting (PONV) Past Psychological History: No Psychological Hx Reported Smoking Status: Never smoker Past Alcohol Use History: None Reported Past Drug Use History: None Reported - Past Family History Mother History Unknown: Yes Family Medical History: No Reported History Medications and Allergies Home Medications Medication Instructions Recorded Confirmed Type Aspirin 81 mg PO DAILY 08/28/21 01/27/24 History Vit No.180/Iron/Folic 1 tab PO DAILY 08/28/21 01/27/24 History [ Plus Tablet] Famotidine [Pepcid AC] 10 mg PO ONCE 01/24/24 01/27/24 History Allergies Allergy/AdvReac Type Severity Reaction Status Date / Time Penicillins AdvReac Rash/Hives Verified 01/27/24 10:22 Sulfa (Sulfonamide AdvReac Rash/Hives Verified 01/27/24 10:22 Antibiotics) sulfamethoxazole AdvReac Rash/Hives Verified 01/27/24 10:22 [From Bactrim] trimethoprim [From Bactrim] AdvReac Rash/Hives Verified 01/27/24 10:22 Exam Osteopathic Statement: *. No significant issues noted on an osteopathic structural exam other than those noted in the History and Physical/Consult. Vital Signs Temp Pulse Resp BP Pulse Ox 01/27/24 10:21 98.2 F 83 16 116/74 97 Intake and Output 01/26/24 01/27/24 01/27/24 22:59 06:59 14:59 Other: Weight 88.451 kg Targeted physical exam is performed this date General is a well-nourished well- developed female in no acute distress, breathing is noted to be nonlabored, heart has a regular rate and rhythm, abdomen is gravid, heart tones are noted to be category 1 and she is not ramon. Cervical exam is deferred. Results Result Diagrams: 01/27/24 10:30 Assessment and Plan (1) Term Current Visit: Yes Status: Acute Code(s): Z34.90 - ENCNTR FOR SUPRVSN OF NORMAL , UNSP, UNSP TRIMESTER SNOMED Code(s): 95687433 (2) History of section Current Visit: Yes Status: Acute Code(s): Z98.891 - HISTORY OF UTERINE SCAR FROM PREVIOUS SURGERY SNOMED Code(s): 121567642 (3) GBS (group B Streptococcus carrier), +RV culture, currently Current Visit: No Status: Acute Code(s): O99.820 - STREPTOCOCCUS B CARRIER STATE COMPLICATING SNOMED Code(s): 5773218951476 Plan: 33-year-old 4 para 1-0-2-1 at 39 weeks that presents for repeat section. Patient a prior history of a and desires repeat. Risks of are reviewed and discussed in general. All questions are answered. Patient agrees and wishes to proceed with repeat section.
[2024-01-27] MEDS ORDERED: diphenhydrAMINE 50 MG CAP PO PRN (13:13)
[2024-01-27] MEDS ORDERED: SIMETHICONE 80 MG CHEWABLE PO PRN (13:13)
[2024-01-27] MEDS ORDERED: diphenhydrAMINE 25 MG CAP PO PRN (13:13)
[2024-01-27] MEDS ORDERED: ZOLPIDEM 5 MG TAB PO PRN (13:13)
[2024-01-27] MEDS: METOCLOPRAMIDE 5 MG/ML 2 ML VIAL IVP PRN (13:55)
[2024-01-27] MEDS: ACETAMINOPHEN IV (For NPO) 1,000 MG in EMPTY BAG 1 BAG IVPB SCH (13:55)
[2024-01-27] MEDS: diphenhydrAMINE 50 MG/ML 1 ML VIAL IVP PRN (14:26)
[2024-01-27] MEDS: ACETAMINOPHEN TAB 500 MG TAB PO SCH (22:22)
[2024-01-27] MEDS: IBUPROFEN 600 MG TAB PO SCH (22:22)
[2024-01-27] MEDS: SENNOSIDES-DOCUSATE SODIUM 1 EACH TAB PO SCH (22:23)
[2024-01-27] MEDS: IBUPROFEN IV 800 MG in SODIUM CHLORIDE 0.9% 250 ML IV SCH (22:23)
[2024-01-28 08:29] LABS: Basophils % (A) 0 %; Eosinophils # (A) 0.3 k/uL (0-0.7); Eosinophils % (A) 2 %; HCT 31.6 % (34.0-46.0); HGB 10.6 gm/dL (11.4-16.0); Lymphocytes # (A) 1.8 k/uL (1.0-4.8); Lymphocytes % (A) 17 %; MCHC 33.6 g/dL (31.0-37.0); MCV 92.2 fL (80.0-100.0); Monocytes # (A) 0.6 k/uL (0-1.0); Monocytes % (A) 6 %; Neutrophils # (A) 7.5 k/uL (1.3-7.7); Neutrophils % (A) 72 %; Platelet Count 147 k/uL (150-450); RBC 3.43 m/uL (3.80-5.40); RDW 13.1 % (11.5-15.5); WBC 10.4 k/uL (3.8-10.6)
[2024-01-28] MEDS: FAMOTIDINE 20 MG TAB PO STA (10:26)
--- NOTE | 2024-01-28 11:36 | P.PN ---
Progress Note - Text Progress Note Date: 01/28/24 POD 1 from C/S with duramorph. Doing well, able to ambulate, able to urinate on her own. PAIN VAS 4/10, no pruritis, no N/V. Mentation is normal. No issues, site clean and dry. Kyle Giordano MD Anesthesiology.
--- NOTE | 2024-01-28 13:08 | P.PNOBGPC ---
Subjective - Subjective Principal diagnosis: Postop day 1, repeat section Interval history: Patient is doing well postoperatively she is ambulating without difficulty. She was straight cathed twice through the night secondary to urinary retention. Patient did struggle with this last time. Patient was counseled that if she is unable to void and needs a third straight cath will place Damon for bladder rest for an additional 8 hours. Lochia is minimal. She is feeling well overall. She is breast-feeding without difficulty. Patient reports: Reports appetite normal, Reports pain well controlled, Reports ambulating normally : doing well, nursing well Objective - Vital Signs Latest vital signs: Vital Signs Temp Pulse Resp BP Pulse Ox 01/28/24 12:00 86 16 110/75 01/28/24 08:00 97.8 F 91 16 108/67 01/28/24 04:00 70 16 101/68 97 01/28/24 00:00 98.2 F 70 16 105/66 97 01/27/24 20:00 71 16 102/60 99 01/27/24 19:00 16 01/27/24 17:45 98 01/27/24 17:00 16 01/27/24 15:45 17 01/27/24 15:00 60 16 101/61 99 01/27/24 14:45 65 16 103/64 98 01/27/24 14:30 73 16 104/62 98 01/27/24 14:15 93 16 115/75 98 01/27/24 14:00 70 16 98/57 98 01/27/24 13:45 67 16 110/60 98 01/27/24 13:30 63 16 103/61 98 01/27/24 13:15 71 17 111/64 98 Intake and Output 01/27/24 01/28/24 01/28/24 22:59 06:59 14:59 Output Total 3337 902 8385 Balance -1325 -800 -1250 Output: Urine 543 537 3522 Straight 800 Output, Quantitative 375 Blood Loss Other: Voiding Method Indwelling Catheter - Exam Extremities: Present: normal, edema Abdomen: Present: normal appearance, soft Incision: Present: normal, dry Uterus: Present: normal, firm - Labs Labs: Abnormal Lab Results - Last 24 Hours (Table) 01/28/24 Range/Units 08:04 RBC 3.43 L (3.80-5.40) m/uL Hgb 10.6 L (11.4-16.0) gm/dL Hct 31.6 L (34.0-46.0) % Plt Count 147 L (150-450) k/uL Assessment and Plan (1) Term Current Visit: Yes Status: Acute Code(s): Z34.90 - ENCNTR FOR SUPRVSN OF NORMAL , UNSP, UNSP TRIMESTER SNOMED Code(s): 78140882 (2) History of section Current Visit: Yes Status: Acute Code(s): Z98.891 - HISTORY OF UTERINE SCAR FROM PREVIOUS SURGERY SNOMED Code(s): 209947994 (3) GBS (group B Streptococcus carrier), +RV culture, currently Current Visit: No Status: Acute Code(s): O99.820 - STREPTOCOCCUS B CARRIER STATE COMPLICATING SNOMED Code(s): 3922876207251 (4) S/P section Current Visit: No Status: Acute Code(s): Z98.891 - HISTORY OF UTERINE SCAR FROM PREVIOUS SURGERY SNOMED Code(s): 407206031 Plan: Patient is doing well post operatively. Plan to place Damon if unable to void spontaneously for an additional 8 hours of bladder rest. Will advance diet. Continue routine post operative care
[2024-01-30 01:29] VITALS: TEMP 98.2
--- NOTE | 2024-01-30 07:41 | P.DS ---
Providers Date of admission: 01/27/24 10:07 Expected date of discharge: 01/30/24 Attending physician: Diana Robins Primary care physician: Jai Dacosta - Discharge Diagnosis(es) (1) Term Current Visit: Yes Status: Acute (2) History of section Current Visit: Yes Status: Acute (3) GBS (group B Streptococcus carrier), +RV culture, currently Current Visit: No Status: Acute (4) S/P section Current Visit: No Status: Acute Hospital Course: This is a 33-year-old 4 now para 2-0-2-2 female that presented to labor and delivery at 39-0/7 weeks, on 01/26 for scheduled . Patient had a prior history of a section and desired repeat. Patient was admitted to labor and delivery and taken back to the operating suite where was performed without difficulty. Viable female was delivered at 1232, weight of 7 pounds 5 ounces, Apgars of 9 and 9 at 1 and 5 minutes respectively. For full details on the please see the dictated operative report. Patient has done well . On this postoperative day #3 she is ambulating and voiding without difficulty. She is tolerating a regular diet without nausea or vomiting. She states her pain is well-controlled with oral Tylenol and ibuprofen. Her lochia is minimal. Breast-feeding is going well. Patient Condition at Discharge: Good Plan - Discharge Summary New Discharge Prescriptions: No Action Vit No.180/Iron/Folic [ Plus Tablet] 1 tab PO DAILY Aspirin 81 mg PO DAILY Famotidine [Pepcid AC] 10 mg PO ONCE Discharge Medication List Aspirin 81 mg PO DAILY 08/28/21 [History] Vit No.180/Iron/Folic [ Plus Tablet] 1 tab PO DAILY 08/28/21 [History] Famotidine [Pepcid AC] 10 mg PO ONCE 01/24/24 [History] Follow up Appointment(s)/Referral(s): Diana Robins DO [Doctor of Osteopathic Medicine] - 03/11/24 1:15 pm (Post C/S Appointment 02-11-2024 at 3:45pm) Patient Instructions/Handouts: (DC), (GEN) Activity/Diet/Wound Care/Special Instructions: No intercourse, tampons or douching. No heavy lifting greater than a gallon of milk. No driving for two weeks. Call with any fever, shakes or chills, with any pain not alleviated by over the counter meds, or with any quesions or concerns. [id number] ibuprofen 600 mg or 3 tablets every 6 hours as needed for pain Discharge Disposition: HOME SELF-CARE
[2024-01-30 09:31] VITALS: BP 116/73; PULSE 76; RESP 16
--- NOTE | 2024-02-04 09:17 | P.OP ---
Date of Procedure: 01/27/24 Preoperative Diagnosis: IUP at 39-0/7 weeks, history of x 1, desires repeat Postoperative Diagnosis: Same Procedure(s) Performed: Repeat section Anesthesia: spinal Surgeon: Diana Robins Open Developer Operator #1: Vonnie Aquino Pathology: none sent Condition: stable Disposition: observation Indications for Procedure: History of x 1, desires repeat Operative Findings: Normal uterus tubes and ovaries were appreciated viable female delivered at 1232, weight of 7 pounds 5 ounces, Apgars of 9 and 9 at 1 and 5 minutes respectively. Description of Procedure: The patient was prepped and draped in the usual fashion after spinal anesthesia was administered by the anesthesia department. A Pfannenstiel incision was made and extended of the abdominal cavity without difficulty. The bladder peritoneum was elevated and incised and reflected distally. A 2 cm incision was made in the transverse plane of the lower uterine segment to enter the uterus at which time clear fluid was noted. The incision was extended in both directions using the bandage scissors. The head was encountered within the field and delivered up and through the incision where the nose and mouth were thoroughly suctioned. Remainder of the was delivered onto the surgical field where the cord was doubly clamped, cut, and the was passed for resuscitative measures with weight and Apgars as noted above. The placenta was delivered manually, intact, and was grossly normal with a grossly normal three-vessel cord. The uterus was exteriorized and the interior cavity of the uterus swept of any remaining placental and membranous fragments with a laparotomy sponge. The margins of the incision were grasped with Donovan clamps and the incision closed in 2 layers. First layer was a running locking layer of 0 Vicryl from margin to margin followed by a second layer of imbricating 0 Vicryl from margin to margin. Any small points of bleeding were then made hemostatic with the Bovie. Once hemostasis was achieved, the posterior cul-de-sac was suctioned with a guard and the uterine and ovarian findings are as noted above. The uterus was replaced within the abdominal cavity and the gutters swept of any remaining blood fluid or clot. The incision was again reexamined and hemostasis was noted to be excellent. Any small point of bleeding were made hemostatic with the Bovie. Once hemostasis was achieved the parietal peritoneum was loosely reapproximated. The layer of muscles were examined and made hemostatic with the Bovie. Attention was then turned to the fascia which was closed with 2 running stitches of 0 Vicryl from 1 lateral edge to the other. The subcutaneous tissues were irrigated, made hemostatic with the Bovie, and reapproximated with a running stitch of 30 Vicryl. The skin was reapproximated with regular surgical carlos. Estimated blood loss for the case was approximately 600 mL. All sponge instrument and needle counts are correct. There were no complications. The patient tolerated the procedure well and proceeded to the recovery room in stable condition. Both mother and are resting comfortably in recovery.
== END 2024-01-30 12:35 | disposition home or self-care (01) | DRG 788 ==
LOC: 4FBP 10:07
PROVIDERS: ADMIT Obstetrics & Gynecology Obstetrics; ATTEND Obstetrics & Gynecology Obstetrics
PROC: 10D00Z1 Extraction of Products of Conception, Low, Open Approach (ICD-10-PCS; principal; 2024-01-27 12:00)
DX: O34.211 Maternal care for low transverse scar from previous cesarean delivery (principal); Z37.0 Single live birth; E03.9 Hypothyroidism, unspecified; Z79.890 Hormone replacement therapy; O99.824 Streptococcus B carrier state complicating childbirth; Z3A.39 39 weeks gestation of pregnancy; Z79.82 Long term (current) use of aspirin; Z87.442 Personal history of urinary calculi; O99.284 Endocrine, nutritional and metabolic diseases complicating childbirth; H40.20X0 Unspecified primary angle-closure glaucoma, stage unspecified; O26.893 Other specified pregnancy related conditions, third trimester; Z80.0 Family history of malignant neoplasm of digestive organs; Z88.2 Allergy status to sulfonamides; O90.89 Other complications of the puerperium, not elsewhere classified; R33.8 Other retention of urine; Z88.0 Allergy status to penicillin
CPT/HCPCS: 85025; 86850; 86900; 86901

== ENCOUNTER → 2024-05-01 | Outpatient (CLI) | payer BC ==
--- NOTE | 2024-05-01 08:51 | MM ---
Reason for Exam: Follow-up at short interval from prior study. Baseline mammogram. Patient History: Menarche at age 8. First Full-Term at age 31. Late child-bearing (after 30). Premenopausal. Prior Study Comparison: Patient's first Mammogram. Tissue Density: The breasts are extremely dense, which lowers the sensitivity of mammography. Findings: Analyzed By CAD. The pattern is symmetrical. No suspicious spiculated or lobular masses evident. No mammographic abnormality to correlate with prior left ultrasound findings. Right axillary node may be present. No suspicious groups of microcalcifications, spiculated or lobular masses, architectural distortion or other secondary signs of malignancy are mammographically apparent. Overall Assessment: Incomplete: need additional imaging evaluation, BI-RAD 0 Management: Diagnostic Breast Ultrasound of the left breast. A negative mammogram report should not preclude additional follow up of suspicious palpable abnormalities. Patient should continue monthly self breast exam. A clinical breast exam by your physician is recommended on an annual basis and results should be correlated with mammographic findings. Note on Radha scores and lifetime risk: 1. A Radha score greater than 3% is considered moderate risk. If this is the case, consider specialist referral to assess eligibility for a risk reducing agent. 2. If overall lifetime risk for the development of breast cancer is 20% or higher, the patient may qualify for future screening with alternating mammogram and breast MRI. [facility], , 05/01/2024 8:48 AM. Electronically signed and approved by: Paco Barreto D.O. Radiologis
== END | disposition home or self-care (01) ==
LOC: RADMAMWWP 08:07
PROVIDERS: ATTEND Obstetrics & Gynecology Obstetrics
DX: N63.0 Unspecified lump in unspecified breast
CPT/HCPCS: 77062; 77066

== ENCOUNTER → 2024-05-01 | Outpatient (CLI) | payer BC ==
--- NOTE | 2024-05-01 09:15 | USB ---
Reason for Exam: Clinical finding. Patient History: Menarche at age 8. First Full-Term at age 31. Late child-bearing (after 30). Premenopausal. Technique: Method: Whole Breast Handheld. Findings: The whole breast of the left breast, the axilla of the left breast and the retroareolar of the left breast were scanned. No solid or cystic masses are identified. Benign-appearing ducts are present. A repeat left breast ultrasound in 6 months following cessation of breast-feeding is recommended to reevaluate for possible nodule previously identified but not evident on this exam. Earlier diagnostic imaging can be performed for changing clinical findings. Overall Assessment: Benign, BI-RAD 2 Management: Screening Mammogram of both breasts at age 39. Diagnostic Breast Ultrasound of the left breast in 6 months. A clinical breast exam by your physician is recommended on an annual basis and results should be correlated with mammographic findings. This exam should not preclude additional follow-up of suspicious palpable abnormalities. Results were given to the patient verbally at the time of exam. [facility], , 05/01/2024 9:06 AM. Electronically signed and approved by: Paco Barreto D.O. Radiologis
== END | disposition home or self-care (01) ==
LOC: RADUSWWP 08:14
PROVIDERS: ATTEND Family Medicine
DX: N63.20 Unspecified lump in the left breast, unspecified quadrant (principal)

== ENCOUNTER 2024-06-12 12:55 | Emergency (ER) | payer BC ==
--- NOTE | 2024-06-12 13:38 | ED ---
General Adult HPI - General Chief complaint: Urogenital Stated complaint: L sided flank pain Source: patient Mode of arrival: ambulatory Limitations: no limitations - History of Present Illness Initial comments: Dictation was produced using [employer] dictation software. please excuse any grammatical, word or spelling errors. Chief Complaint: 33-year-old female presents with persistent kidney stone pain History of Present Illness: Patient 33-year-old female she has had 2 days of right-sided flank pain. She was seen at outside emergency department where she was diagnosed with 5 mm ureteral stone. She was seen discharged placed on antibiotics. States that she woke up this morning with intense pain nausea vomiting still. Patient has had lithotripsy for kidney stone in the past. States that it has been several years since she is needed 1. The ROS documented in this emergency department record has been reviewed and confirmed by me. Those systems with pertinent positive or negative responses have been documented in the HPI. All other systems are other negative and/or noncontributory. - Related Data Home Medications Medication Instructions Recorded Confirmed Aspirin 81 mg PO DAILY 08/28/21 01/27/24 Vit No.180/Iron/Folic 1 tab PO DAILY 08/28/21 01/27/24 [ Plus Tablet] Famotidine [Pepcid AC] 10 mg PO ONCE 01/24/24 01/27/24 Previous Rx's Medication Instructions Recorded Ketorolac [Toradol] 10 mg PO Q6HR PRN 3 Days #12 tab 06/12/24 Allergies Allergy/AdvReac Type Severity Reaction Status Date / Time Penicillins AdvReac Rash/Hives Verified 06/12/24 13:03 Sulfa (Sulfonamide AdvReac Rash/Hives Verified 06/12/24 13:03 Antibiotics) sulfamethoxazole AdvReac Rash/Hives Verified 06/12/24 13:03 [From Bactrim] trimethoprim [From Bactrim] AdvReac Rash/Hives Verified 06/12/24 13:03 Review of Systems ROS Statement: Those systems with pertinent positive or pertinent negative responses have been documented in the HPI. ROS Other: All systems not noted in ROS Statement are negative. Past Medical History Additional Past Medical History / Comment(s): Kidney stones, narrow angle glaucoma History of Any Multi-Drug Resistant Organisms: None Reported Past Surgical History: Section Additional Past Surgical History / Comment(s): Lithotripsy, eye surgery Past Anesthesia/Blood Transfusion Reactions: Postoperative Nausea & Vomiting (PONV) Past Psychological History: No Psychological Hx Reported Smoking Status: Never smoker Past Alcohol Use History: None Reported Past Drug Use History: None Reported - Past Family History Mother History Unknown: Yes Family Medical History: No Reported History General Exam - General Exam Comments Initial Comments: PHYSICAL EXAM: General Impression: Alert and oriented x3, acute distress secondary to pain HEENT: Normocephalic atraumatic, extra-ocular movements intact, pupils equal and reactive to light bilaterally, mucous membranes moist. Cardiovascular: Heart regular rate and rhythm Chest: Able to complete full sentences, no retractions, no tachypnea Abdomen: abdomen soft, non-tender, non-distended, no organomegaly Musculoskeletal: Pulses present and equal in all extremities, no peripheral edema Motor: no focal deficits noted Neurological: CN II-XII grossly intact, no focal motor or sensory deficits noted Skin: Intact with no visualized rashes Psych: Normal affect and mood Limitations: no limitations Course Vital Signs 06/12/24 06/12/24 13:01 15:03 Temperature 98.2 F 98 F Pulse Rate 73 84 Respiratory 20 16 Rate Blood Pressure 128/53 105/67 O2 Sat by Pulse 96 100 Oximetry Medical Decision Making - Medical Decision Making Was pt. sent in by a medical professional or institution ([facility], [employer], urgent care, hospital, or prison...) When possible be specific @ -No Did you speak to anyone other than the patient for history (EMS, parent, family, police, friend...)? What history was obtained from this source @ -No Did you review nursing and triage notes (agree or disagree)? Why? @ -I reviewed and agree with nursing and triage notes Were old charts reviewed (outside hosp., previous admission, EMS record, old EKG, old radiological studies, urgent care reports/EKG's, prison records)? Report findings @ -No old charts were reviewed Differential Diagnosis (chest pain, altered mental status, abdominal pain women, abdominal pain men, vaginal bleeding, musculoskeletal, weakness, fever, dyspnea, syncope, headache, dizziness, GI bleed, back pain, seizure, CVA, palpatations, mental health)? @ -Differential Abdominal Pain Women: Appendicitis, Cholecystitis, diverticulosis, ischemic bowel, pancreatitis, hepatitis, UTI, gastroenteritis, AAA, incarcerated hernia, bowel obstruction, constipation, inflammatory bowel, hepatitis, peptic ulcer disease, splenic infarction, perforated viscus, vulvitis, ovarian torsion, PID, kidney stone, placenta abruption, this is not meant to be an all-inclusive list EKG interpreted by me (3pts min.). @ -None done X-rays interpreted by me (1pt min.). @ -Abdominal x-ray shows 5 mm calcification in left renal pelvis. There is no obvious finding on the right renal collection system CT interpreted by me (1pt min.). @ -None done U/S interpreted by me (1pt. min.). @ -None done What testing was considered but not performed or refused? (CT, X-rays, U/S, labs)? Why? @ -None What meds were considered but not given or refused? Why? @ -None Was smoking cessation discussed for >3mins.? @ -No Were there social determinants of health that impacted care today? How? (Homelessness, low income, unemployed, alcoholism, drug addiction, transportation, low edu. Level, literacy, decrease access to med. care, snf, rehab)? @ -No Was there de-escalation of care discussed even if they declined (Discuss DNR or withdrawal of care, Hospice)? DNR status @ -No What co-morbidities impacted this encounter? (DM, HTN, Smoking, COPD, CAD, Cancer, CVA, ARF, Chemo, Hep., AIDS, mental health diagnosis, sleep apnea, morbid obesity)? @ -History of kidney stones Was patient admitted / discharged? Hospital course, mention meds given and route, prescriptions, significant lab abnormalities, going to OR and other pertinent info. @ -33-year-old female presents to the emergency department with kidney stone pain. She was diagnosed with 5 mm ureteral stone yesterday. Patient has history of kidney stones. Vital signs upon arrival are within acceptable limits. Patient complaining of significant pain. Laboratory evaluation obtained. Labs are within acceptable limits. Patient given analgesics and antiemetics with improvement of symptoms. Patient agreeable for discharge. Return precautions discussed she is given outpatient referral to outpatient urology Did you discuss the management of the patient with other professionals (professionals i.e. , PA, [employer], lab, RT, psych nurse, social services, web art director, teacher, court officer, clinical case manager)? Give summary @ -No Was critical care preformed (if so, how long)? @ -No Undiagnosed new problem with uncertain prognosis? @ -No Drug Therapy requiring intensive monitoring for toxicity (Heparin, Nitro, Insulin, Cardizem)? @ -No Were any procedures done? @ -No Diagnosis/symptom? Acute, or Chronic, or Acute on Chronic? Uncomplicated (without systemic symptoms) or Complicated (systemic symptoms)? @ -Symptomatic nephrolithiasis Side effects of treatment? @ -No Exacerbation, Progression, or Severe Exacerbation? @ -No Poses a threat to life or bodily function? How? (Chest pain, [place], VA, pneumonia, PE, COPD, DKA, ARF, appy, cholecystitis, CVA, Diverticulitis, Homicidal, Suicidal, threat to staff... and all critical care pts) @ -yes - Lab Data Result diagrams: 06/12/24 13:46 06/12/24 13:46 Lab Results 06/12/24 06/12/24 06/12/24 Range/Units 13:46 13:46 13:46 WBC 7.8 (3.8-10.6) k/uL RBC 4.28 (3.80-5.40) m/uL Hgb 12.8 (11.4-16.0) gm/dL Hct 38.4 (34.0-46.0) % MCV 89.7 (80.0-100.0) fL MCH 30.0 (25.0-35.0) pg MCHC 33.4 (31.0-37.0) g/dL RDW 12.9 (11.5-15.5) % Plt Count 194 (150-450) k/uL MPV 9.7 Neutrophils % 71 % Lymphocytes % 18 % Monocytes % 6 % Eosinophils % 3 % Basophils % 1 % Neutrophils # 5.5 (1.3-7.7) k/uL Lymphocytes # 1.4 (1.0-4.8) k/uL Monocytes # 0.5 (0-1.0) k/uL Eosinophils # 0.2 (0-0.7) k/uL Basophils # 0.1 (0-0.2) k/uL Sodium 139 (137-145) mmol/L Potassium 3.2 L (3.5-5.1) mmol/L Chloride 109 H (98-107) mmol/L Carbon Dioxide 25 (22-30) mmol/L Anion Gap 5 mmol/L BUN 17 (7-17) mg/dL Creatinine 0.86 (0.52-1.04) mg/dL Est GFR (CKD-EPI)AfAm >90 (>60 ml/min/1.73 sqM) Est GFR (CKD-EPI)NonAf 89 (>60 ml/min/1.73 sqM) Glucose 104 H (74-99) mg/dL Calcium 8.8 (8.4-10.2) mg/dL Urine Color Light Red Urine Appearance Cloudy H (Clear) Urine pH 6.0 (5.0-8.0) Ur Specific [place] 1.027 (1.001-1.035) Urine Protein 1+ H (Negative) Urine Glucose (UA) Negative (Negative) Urine Ketones Trace H (Negative) Urine Blood Large H (Negative) Urine Nitrite Negative (Negative) Urine Bilirubin Negative (Negative) Urine Urobilinogen <2.0 (<2.0) mg/dL Ur Leukocyte Esterase Small H (Negative) Urine RBC >182 H (0-5) /hpf Urine WBC 10 H (0-5) /hpf Ur Squamous Epith Cells 1 (0-4) /hpf Urine Mucus Moderate H (None) /hpf Urine HCG, Qual (Not Detectd) 06/12/24 Range/Units 13:46 WBC (3.8-10.6) k/uL RBC (3.80-5.40) m/uL Hgb (11.4-16.0) gm/dL Hct (34.0-46.0) % MCV (80.0-100.0) fL MCH (25.0-35.0) pg MCHC (31.0-37.0) g/dL RDW (11.5-15.5) % Plt Count (150-450) k/uL MPV Neutrophils % % Lymphocytes % % Monocytes % % Eosinophils % % Basophils % % Neutrophils # (1.3-7.7) k/uL Lymphocytes # (1.0-4.8) k/uL Monocytes # (0-1.0) k/uL Eosinophils # (0-0.7) k/uL Basophils # (0-0.2) k/uL Sodium (137-145) mmol/L Potassium (3.5-5.1) mmol/L Chloride (98-107) mmol/L Carbon Dioxide (22-30) mmol/L Anion Gap mmol/L BUN (7-17) mg/dL Creatinine (0.52-1.04) mg/dL Est GFR (CKD-EPI)AfAm (>60 ml/min/1.73 sqM) Est GFR (CKD-EPI)NonAf (>60 ml/min/1.73 sqM) Glucose (74-99) mg/dL Calcium (8.4-10.2) mg/dL Urine Color Urine Appearance (Clear) Urine pH (5.0-8.0) Ur Specific [place] (1.001-1.035) Urine Protein (Negative) Urine Glucose (UA) (Negative) Urine Ketones (Negative) Urine Blood (Negative) Urine Nitrite (Negative) Urine Bilirubin (Negative) Urine Urobilinogen (<2.0) mg/dL Ur Leukocyte Esterase (Negative) Urine RBC (0-5) /hpf Urine WBC (0-5) /hpf Ur Squamous Epith Cells (0-4) /hpf Urine Mucus (None) /hpf Urine HCG, Qual Not Detected (Not Detectd) Disposition Clinical Impression: Kidney stone Disposition: HOME SELF-CARE Condition: Fair Instructions (If sedation given, give patient instructions): Kidney Stones (ED) Prescriptions: Ketorolac [Toradol] 10 mg PO Q6HR PRN 3 Days #12 tab PRN Reason: Pain Is patient prescribed a controlled substance at d/c from ED?: No Referrals: Brett Diaz MD [STAFF PHYSICIAN] - 1-2 days Time of Disposition: 15:21
[2024-06-12] MEDS: SODIUM CHLORIDE 0.9% 1,000 ML IV STA (13:41)
[2024-06-12] MEDS: KETOROLAC 15 MG/ML 1 ML VIAL IVP STA (13:44)
[2024-06-12] MEDS: ONDANSETRON 4 MG/2 ML VIAL IVP STA (13:44)
[2024-06-12] MEDS: MORPHINE SULFATE 4 MG/ML SYRINGE IVP PRN (13:45)
--- NOTE | 2024-06-12 14:26 | XR ---
EXAMINATION TYPE: XR abdomen 1V DATE OF EXAM: 06/12/2024 2:05 PM COMPARISON: None CLINICAL INDICATION: Female, 33 years old with history of kidney stone; pain TECHNIQUE: One radiographic view of the abdomen was obtained. FINDINGS: Large stool burden is seen throughout the colon within the rectum. High density within the left renal collecting system possibly excreted IV contrast. Calcification density may be projecting o sully the renal pelvis on the left measuring up to 5 mm. Osseous structures appear intact. IMPRESSION: 1. Left renal pelvis possible 5 mm calcification. 2. High density within the left renal pelvis collecting system correlate for recent IV injection. Co nsider further evaluation with CT imaging. 3. Large amount stool in the rectum. [facility], , 06/12/2024 2:24 PM
[2024-06-12 14:33] LABS: Appearance,Urine Cloudy (Clear); Bilirubin,Urine Negative (Negative); Blood,Urine Large (Negative); Color,Urine Light Red; Glucose,Urine (UA) Negative (Negative); Ketones,Urine Trace (Negative); Leukocyte Esterase,Urine Small (Negative); Mucus,Urine Moderate /hpf; Nitrite,Urine Negative (Negative); Protein,Urine 1+ (Negative); RBC,Urine >182 /hpf (0-5); Specific Gravity,Urine 1.027 (1.001-1.035); Squamous Epithelial Cell,Urine 1 /hpf (0-4); Urobilinogen,Urine <2.0 mg/dL (<2.0); WBC,Urine 10 /hpf (0-5)
[2024-06-12 14:36] LABS: Basophils # (A) 0.1 k/uL (0-0.2); Basophils % (A) 1 %; Eosinophils # (A) 0.2 k/uL (0-0.7); Eosinophils % (A) 3 %; HCT 38.4 % (34.0-46.0); HGB 12.8 gm/dL (11.4-16.0); Lymphocytes # (A) 1.4 k/uL (1.0-4.8); Lymphocytes % (A) 18 %; MCHC 33.4 g/dL (31.0-37.0); MCV 89.7 fL (80.0-100.0); Mean Platelet Volume 9.7; Monocytes # (A) 0.5 k/uL (0-1.0); Monocytes % (A) 6 %; Neutrophils # (A) 5.5 k/uL (1.3-7.7); Neutrophils % (A) 71 %; Platelet Count 194 k/uL (150-450); RBC 4.28 m/uL (3.80-5.40); RDW 12.9 % (11.5-15.5); WBC 7.8 k/uL (3.8-10.6)
[2024-06-12 14:52] LABS: African American GFR (CKD) >90 (>60 ml/min/1.73 sqM); Anion Gap 5 mmol/L; Blood Urea Nitrogen 17 mg/dL (7-17); Calcium 8.8 mg/dL (8.4-10.2); Carbon Dioxide 25 mmol/L (22-30); Chloride 109 mmol/L (98-107); Glucose 104 mg/dL (74-99); Non-African American GFR(CKD) 89 (>60 ml/min/1.73 sqM); Potassium 3.2 mmol/L (3.5-5.1); Sodium 139 mmol/L (137-145)
[2024-06-12 15:14] VITALS: BP 105/67; PULSE 84; RESP 16; TEMP 98
[2024-06-12] MEDS: MORPHINE SULFATE 4 MG/ML SYRINGE IVP STA (15:27)
== END 2024-06-12 15:32 | disposition home or self-care (01) ==
LOC: EC 12:55
DX: N20.0 Calculus of kidney (principal); Z88.0 Allergy status to penicillin; Z88.1 Allergy status to other antibiotic agents; Z88.2 Allergy status to sulfonamides
CPT/HCPCS: 36415; 80048; 85025; 81001; 81025; 74018; 99284; 96374; 96375 ×2; 96376; 96361 ×2; J2270; J2405; J1885

== ENCOUNTER → 2024-06-19 | Outpatient (CLI) | payer BC ==
--- NOTE | 2024-06-19 14:49 | XR ---
EXAMINATION TYPE: XR KUB DATE OF EXAM: 06/19/2024 COMPARISON: 06/12/2024 CLINICAL INDICATION: Female, 33 years old with history of N20.1 CALCULUS OF URETER; TECHNIQUE: XR KUB views of the abdomen. FINDINGS: The osseous structures are intact. The bowel gas pattern is nonspecific. 4 mm calcification adjacent to the left L3 transverse process is stable. Moderate retained stool burden. Osseous structures intact. Visualized lung bases clear. IMPRESSION: 1. Stable left upper quadrant 4 mm proximal ureteral calcification. [facility], , 06/19/2024 2:47 PM
== END | disposition home or self-care (01) ==
LOC: RADXRMAIN 14:31
PROVIDERS: ATTEND Urology
DX: N20.1 Calculus of ureter (principal)
CPT/HCPCS: 74018

== ENCOUNTER → 2024-06-25 | Outpatient (CLI) | payer BC ==
[2024-06-26 02:16] LABS: Basophils # (A) 0.08 X 10*3/uL (0.00-0.10); Basophils % (A) 0.9 %; Eosinophils # (A) 0.31 X 10*3/uL (0.04-0.35); Eosinophils % (A) 3.7 %; HCT 40.4 % (37.2-46.3); HGB 13.4 g/dL (12.0-15.0); Lymphocytes # (A) 1.93 X 10*3/uL (0.90-5.00); Lymphocytes % (A) 22.7 %; MCH 30.7 pg (27.0-32.0); MCHC 33.2 g/dL (32.0-37.0); MCV 92.7 FL (80.0-97.0); Mean Platelet Volume 11.9 FL (9.5-12.2); Monocytes # (A) 0.76 X 10*3/uL (0.20-1.00); NRBC Per 100 WBC 0 X 10*3/uL (0.00-0.01); Neutrophils # (A) 5.39 X 10*3/uL (1.80-7.70); Neutrophils % (A) 63.5 %; Platelet Count 278 X 10*3/uL (140-440); RBC 4.36 X 10*6/uL (4.10-5.20); RDW 12.5 % (11.5-14.5); WBC 8.49 X 10*3/uL (4.50-10.00)
[2024-06-26 02:41] LABS: Bacteria,Urine 2+ (None Seen)
[2024-06-26 02:47] LABS: Carbon Dioxide 27.3 mmol/L (21.6-31.8); Chloride 105 mmol/L (96-109); Potassium 4.1 mmol/L (3.5-5.5); Sodium 143 mmol/L (135-145)
[2024-06-26 04:29] LABS: Appearance,Urine Turbid (Clear); Bilirubin,Urine Negative (Negative); Blood,Urine Trace (Negative); Color,Urine Yellow (Yellow); Ketones,Urine 15 (Negative); Nitrite,Urine Negative (Negative); Specific Gravity,Urine 1.035 (1.001-1.030)
== END | disposition home or self-care (01) ==
LOC: LABPAT 16:13
PROVIDERS: ATTEND Urology
DX: Z01.818 Encounter for other preprocedural examination (principal); N20.1 Calculus of ureter
CPT/HCPCS: 80051; 81001; 82565; 85025

== ENCOUNTER 2024-06-29 07:54 | Day surgery (SDC) | payer BC ==
--- NOTE | 2024-06-28 09:45 | P.GSHP ---
History of Present Illness H&P Date: 06/28/24 Chief Complaint: Left renal colic The patient is a 33-year-old white female with a history of kidney stones. She underwent right extracorporal shockwave lithotripsy (ESWL) in 2009 which was successful. She now presents with left renal colic due to a 5 mm left proximal ureteral calculus. Alternative treatment options were reviewed with her in detail, including medical expulsion therapy, ureteroscopy with laser lithotripsy, and ESWL. She has elected to undergo the latter and comes for this reason. - Constitutional Constitutional: Reports chills - Gastrointestinal Gastrointestinal: Reports nausea, Reports vomiting - Genitourinary (Female) Genitourinary: Reports dysuria, Reports flank pain, Reports hematuria, Reports kidney stones Past Medical History Past Medical History: Eye Disorder, GERD/Reflux Additional Past Medical History / Comment(s): Kidney stones, narrow angle glaucoma, hiatal hernia History of Any Multi-Drug Resistant Organisms: None Reported Past Surgical History: Section Additional Past Surgical History / Comment(s): Lithotripsy, eye surgery, c- section x2 Past Anesthesia/Blood Transfusion Reactions: Family History of Problems w/ Anesthesia, Motion Sickness, Postoperative Nausea & Vomiting (PONV) Additional Past Anesthesia/Blood Transfusion Reaction / Comment(s): twin sister PONV Smoking Status: Never smoker - Past Family History Mother History Unknown: Yes Family Medical History: No Reported History Medications and Allergies Home Medications Medication Instructions Recorded Confirmed Type Vit No.180/Iron/Folic 1 tab PO DAILY 08/28/21 06/26/24 History [ Plus Tablet] Ketorolac [Toradol] 10 mg PO Q6HR PRN 3 Days #12 tab 06/12/24 06/26/24 Rx Allergies Allergy/AdvReac Type Severity Reaction Status Date / Time Penicillins AdvReac Rash/Hives Verified 06/26/24 09:19 Sulfa (Sulfonamide AdvReac Rash/Hives Verified 06/26/24 09:19 Antibiotics) sulfamethoxazole AdvReac Rash/Hives Verified 06/26/24 09:19 [From Bactrim] trimethoprim [From Bactrim] AdvReac Rash/Hives Verified 06/26/24 09:19 Surgical - Exam - General well developed, well nourished, no distress - Respiratory normal respiratory effort (Asked that he) - Psychiatric oriented to time, oriented to person, oriented to place, speech is normal, memory intact Results - Imaging Abdominal x-ray: report reviewed, image reviewed CT scan - abdomen: report reviewed, image reviewed Assessment and Plan (1) Calculus of ureter Status: Acute Code(s): N20.1 - CALCULUS OF URETER SNOMED Code(s): 02815172 Plan: Left ESWL, to be performed by Dr. Kelley. The procedure has been reviewed in detail with the patient. She has been made aware of potential risks, which include anesthesia, injury to adjacent organs, treatment failure, incomplete fragmentation, and [place].
[~2024-06-29 07:54] MED LIST: HYDROmorphone 0.5 MG/0.5 ML SYRINGE IVP PRN; LIDOCAINE 1% (10MG/ML) FOR IV START INTRADERMA PRN; MIDAZOLAM 2 MG/2 ML VIAL IV PRN; fentaNYL (PF) 50 MCG/ML 2 ML AMP IVP PRN
--- NOTE | 2024-06-29 08:09 | XR ---
EXAMINATION TYPE: XR KUB DATE OF EXAM: 06/29/2024 8:03 AM COMPARISON: 04/04/2024 CLINICAL INDICATION: Female, 33 years old with history of KIDNEY STONE; [facility] TECHNIQUE: One radiographic view of the abdomen was obtained. FINDINGS: The bowel gas pattern is nonspecific without dilated loops of small or large bowel. . Fecal material and gas are demonstrated throughout the colon and rectum. There is no evidence for organomegaly or pneumoperitoneum. The osseous structures are intact. Calcu delvis in the ureteropelvic junction on the left measuring up to 5 mm is unchanged. IMPRESSION: Similar left contrast projecting near the ureteropelvic Junction the left [facility], , 06/29/2024 8:06 AM
[2024-06-29 08:43] VITALS: TEMP 97.6
[2024-06-29] MEDS: IV FLUID CONTINUATION 1,000 ML IV ONE (08:49)
[2024-06-29] MEDS: LACTATED RINGERS 1,000 ML IV SCH (08:49)
[2024-06-29] MEDS: ONDANSETRON 4 MG/2 ML VIAL IVP ONE (08:54)
[2024-06-29] MEDS: DEXAMETHASONE SOD PHOSPHATE 4 MG/ML 1 ML VIAL IV ONE (08:55)
[2024-06-29] MEDS: diphenhydrAMINE 50 MG/ML 1 ML VIAL IVP STA (09:06)
[2024-06-29] MEDS ORDERED: diphenhydrAMINE 50 MG/ML 1 ML VIAL ONE (09:18)
[2024-06-29] MEDS ORDERED: LIDOCAINE 1% INJ 10MG/ML (20 ML MDV) ONE (09:18)
[2024-06-29] MEDS ORDERED: PROPOFOL 10 MG/ML 20 ML VIAL IV ONE (09:18)
[2024-06-29] MEDS ORDERED: KETAMINE HCL IN 0.9 % NACL 50 MG/5 ML SYRINGE ONE (09:18)
[2024-06-29] MEDS ORDERED: MIDAZOLAM 2 MG/2 ML VIAL ONE (09:18)
[2024-06-29] MEDS ORDERED: GLYCOPYRROLATE 0.2 MG/ML 2 ML VIAL ONE (09:18)
[2024-06-29] MEDS ORDERED: fentaNYL (PF) 50 MCG/ML 2 ML AMP ONE (09:18)
--- NOTE | 2024-06-29 09:57 | P.OP ---
Date of Procedure: 06/29/24 Preoperative Diagnosis: left upj stone Postoperative Diagnosis: same Procedure(s) Performed: eswl left 2500 shocks Anesthesia: MAC Surgeon: Frantz Kelley Pathology: none sent Condition: stable Disposition: PACU Indications for Procedure: the patient is 33. She has a 5 mm proximal ureteral to UPJ stone on the left. She comes for shockwave lithotripsy Description of Procedure: patient brought to the operating suite. She is given IV sedation on the lithotripsy table. With the tamayo pizoelectric lithotripter the stone is seen in 2 views of fluoroscopy. A total 2500 shocks accelerating energy levels are administered. The stone appears to fracture. Then the procedure the patient is awake and returned recovery in good condition. She tolerated procedure well be discharged home upon recovery.
[2024-06-29 10:26] VITALS: RESP 16
[2024-06-29 11:09] VITALS: BP 110/78; PULSE 55
== END 2024-06-29 12:00 | disposition home or self-care (01) ==
LOC: ORWHC2ENDO 07:54
PROVIDERS: ATTEND Urology
DX: N20.1 Calculus of ureter (principal); K21.9 Gastro-esophageal reflux disease without esophagitis; Z88.0 Allergy status to penicillin; Z88.1 Allergy status to other antibiotic agents; Z88.2 Allergy status to sulfonamides; Z79.899 Other long term (current) drug therapy
CPT/HCPCS: 81025; 74018; 50590; J2250; J1200; J1100; J2405; J2003; J3010; J2704; J1596

== ENCOUNTER → 2024-07-06 | Outpatient (CLI) | payer BC ==
--- NOTE | 2024-07-06 08:31 | XR ---
EXAMINATION TYPE: XR KUB DATE OF EXAM: 07/06/2024 COMPARISON: NONE CLINICAL INDICATION: Female, 33 years old with history of N20.1 CALCULUS OF URETER; TECHNIQUE: XR KUB views of the abdomen. FINDINGS: The osseous structures are intact. The bowel gas pattern is nonspecific. Extensive retained fecal de bris throughout the colon. Limits assessment for calcifications. Punctate calcification overlying the bladder\lower pelvis. IMPRESSION: 1. Nonspecific abdomen. Severe constipation. Limits assessment for calcifications. Previously noted calcification adjacent left transverse of L3 is not seen with certainty. There is a punctate calcific ation overlying the region of the bladder. [facility], , 07/06/2024 8:29 AM
== END | disposition home or self-care (01) ==
LOC: RADXRMAIN 08:14
PROVIDERS: ATTEND Urology
DX: N20.1 Calculus of ureter (principal); K59.00 Constipation, unspecified
CPT/HCPCS: 74018